=== PATIENT | male | born 1945 | race Caucasian/White ===

== ENCOUNTER 2020-07-24 12:44 | Inpatient (IN) | payer MEDICARE, BC ==
[2020-07-24] MEDS ORDERED: MORPHINE SULFATE 4 MG/ML SYRINGE IVP STA (14:23)
[2020-07-24] MEDS ORDERED: NALOXONE 0.4 MG/ML 1 ML VIAL IV PRN (14:36)
--- NOTE | 2020-07-24 14:36 | ED ---
SOB HPI - General Chief Complaint: Shortness of Breath Stated Complaint: SOB,Covid + Source: patient, EMS Mode of arrival: EMS - History of Present Illness Initial Comments: Patient is a 75-year-old male with past history of sarcoid who presents emergency Department as a transfer from [facility]. It was reported from the ER physician that the patient has been seen 3 times in the emergency room for similar complaints. He does wear 3 L of oxygen at night. He states he has been wearing it continuously for the past 5 days because of his increased work of breathing. He did have a Covid swab performed at his other ER visits which came back positive. He states they've been having progressive worsening shortness of breath. Today he arrived to the ER was found to be 80%. Decadron was given as well as albuterol inhaler. The patient did have a CT of his chest which was negative for PE. The remainder of the HPI is limited because the patient is a poor historian - Related Data Home Medications Medication Instructions Recorded Confirmed Albuterol Sulfate [Ventolin HFA] 2 puff INHALATION RT-Q6H PRN 07/24/20 07/24/20 Allopurinol [Zyloprim] 100 mg PO DAILY 07/24/20 07/24/20 Atorvastatin [Lipitor] 10 mg PO HS 07/24/20 07/24/20 Clopidogrel Bisulfate [Plavix] 75 mg PO DAILY 07/24/20 07/24/20 Docusate Sodium [Dok] 100 mg PO BID PRN 07/24/20 07/24/20 Isosorbide Mononitrate ER [Imdur] 30 mg PO DAILY 07/24/20 07/24/20 Levofloxacin [Levaquin] 750 mg PO DAILY 07/24/20 07/24/20 Losartan Potassium [Cozaar] 25 mg PO DAILY 07/24/20 07/24/20 Magnesium Oxide [Mag-Ox] 400 mg PO DAILY 07/24/20 07/24/20 Methadone [Dolophine] 10 mg PO Q12H 07/24/20 07/24/20 Nitroglycerin Sl Tabs [Nitrostat] 0.4 mg SUBLINGUAL Q5M PRN 07/24/20 07/24/20 Omeprazole [PriLOSEC] 20 mg PO DAILY 07/24/20 07/24/20 Sertraline [Zoloft] 50 mg PO DAILY 07/24/20 07/24/20 Tamsulosin [Flomax] 0.8 mg PO HS 07/24/20 07/24/20 cilostazoL [Pletal] 100 mg PO BID 07/24/20 07/24/20 Allergies Allergy/AdvReac Type Severity Reaction Status Date / Time fluoxetine [From Prozac] Allergy Unknown Verified 07/24/20 13:14 Review of Systems ROS Statement: Those systems with pertinent positive or pertinent negative responses have been documented in the HPI. ROS Other: All systems not noted in ROS Statement are negative. Past Medical History Past Medical History: Dementia History of Any Multi-Drug Resistant Organisms: None Reported General Exam Limitations: altered mental status General appearance: alert, in no apparent distress Head exam: Present: atraumatic, normocephalic, normal inspection Eye exam: Present: normal appearance, PERRL, EOMI. Absent: scleral icterus, conjunctival injection, periorbital swelling ENT exam: Present: normal exam, mucous membranes moist Respiratory exam: Present: normal lung sounds bilaterally. Absent: respiratory distress, wheezes, rales, rhonchi, stridor Cardiovascular Exam: Present: regular rate, normal rhythm, normal heart sounds. Absent: systolic murmur, diastolic murmur, rubs, gallop, clicks GI/Abdominal exam: Present: soft, normal bowel sounds. Absent: distended, tenderness, guarding, rebound, rigid Neurological exam: Present: alert, other (oriented x 2 - baseline) Course Vital Signs 07/24/20 07/24/20 07/24/20 12:56 14:51 15:43 Temperature 98.4 F Pulse Rate 58 L 87 90 Respiratory 14 18 16 Rate Blood Pressure 121/71 165/85 154/70 O2 Sat by Pulse 95 93 L 94 L Oximetry 07/24/20 07/24/20 07/24/20 17:28 19:16 21:38 Temperature Pulse Rate 94 84 93 Respiratory 12 18 12 Rate Blood Pressure 144/108 134/82 125/39 O2 Sat by Pulse 98 93 L 94 L Oximetry Medical Decision Making - Medical Decision Making Upon arrival patient is placed in room 18. Packet is obtained and reviewed. Vital stable at this time. Patient will be admitted to Dr. Milian who accepted the patient - Lab Data Result diagrams: 07/25/20 06:40 07/26/20 06:12 - EKG Data EKG Comments: EKG demonstrates a normal sinus rhythm with PVCs and compensatory pause. Rate of 88. IL interval 200. QRS 100. QTC of 462. No acute ST segment elevations or depressions Disposition Clinical Impression: Hypoxia, COVID-19 Disposition: ADMITTED IP TO THIS HOSP Condition: Serious Is patient prescribed a controlled substance at d/c from ED?: No Decision to Admit Reason: Admit from EC Decision Date: 07/24/20 Decision Time: 14:36
[2020-07-24] MEDS ORDERED: ENOXAPARIN 40 MG/0.4 ML SYRINGE SQ STA (14:45)
[2020-07-24] MEDS ORDERED: DOCUSATE 100 MG CAP PO PRN (16:25)
[2020-07-24] MEDS ORDERED: NITROGLYCERIN SL TABS 0.4 MG TAB SUBLINGUAL PRN (16:25)
--- NOTE | 2020-07-24 17:11 | XR ---
EXAMINATION TYPE: XR chest 1V portable DATE OF EXAM: 07/24/2020 COMPARISON: 07/24/2022 day HISTORY: Short of breath TECHNIQUE: FINDINGS: There is coarse interstitial density in the lungs. There are sternal wires. There are chest leads. Costophrenic angles are slightly blunted. IMPRESSION: Pulmonary interstitial fibrotic changes. No obvious heart failure. Right side pleural sca rring. No change compared to exam this morning at 8:00 AM.
[2020-07-24] MEDS: dexAMETHasone 2 MG TAB PO SCH (17:27)
[2020-07-24] MEDS: METHADONE 10 MG TAB PO SCH (17:27)
--- NOTE | 2020-07-24 17:56 | P.CNPUL ---
History of Present Illness Consult date: 07/24/20 Requesting physician: Huong Milian Reason for consult: dyspnea, hypoxemia Chief complaint: Dyspnea, progressive, hypoxemia History of present illness: 75-year-old white male patient with history of Alzheimer's dementia, BPH, depression, GERD, hypertension, CAD with previous bypass grafting and stenting, PVD, chronic back pain gout, and past history of sarcoidosis, who was transferred from [facility] where he went for evaluation worsening shortness of breath. Patient normally wears 3 L of oxygen at home at bedtime, and in last 5 days he's been wearing it continuously related to increased work of breathing. Apparently he had 3 ER visits last week for similar complaints. During those visits he was found to be positive for COVID 19. He had positive COVID 19 contacts. His daughter had COVID 19 infection about a month ago. In emergency department today his pulse ox was 80%. He was complaining of worsening shortness of breath and confusion, he was brought in by his son for evaluation. He is on Levaquin for urinary tract infection and pneumonia. He was started on Decadron and albuterol inhaler. He had a CTA chest which was negative for pulmonary embolism. He is afebrile, hemodynamically stable, his pulse ox is 93-95% on 2 L of oxygen, he is awaiting a bed on the medical surgical floor, he was continued on oral Decadron, empiric antibiotics in the form of Levaquin were added. And we were asked to see the patient in consultation to acute on chronic hypoxia related to COVID 19 infection Review of Systems All systems: negative Constitutional: Denies chills, Denies fever Eyes: denies blurred vision, denies pain Ears, nose, mouth and throat: Denies headache, Denies sore throat Cardiovascular: Denies chest pain, Denies shortness of breath Respiratory: Reports dyspnea, Reports home oxygen, Denies cough Gastrointestinal: Denies abdominal pain, Denies diarrhea, Denies nausea, Denies vomiting Musculoskeletal: Denies myalgias Integumentary: Denies pruritus, Denies rash Neurological: Denies numbness, Denies weakness Psychiatric: Denies anxiety, Denies depression Endocrine: Denies fatigue, Denies weight change Past Medical History Past Medical History: Dementia History of Any Multi-Drug Resistant Organisms: None Reported Medications and Allergies Home Medications Medication Instructions Recorded Confirmed Type Albuterol Sulfate [Ventolin HFA] 2 puff INHALATION RT-Q6H PRN 07/24/20 07/24/20 History Allopurinol [Zyloprim] 100 mg PO DAILY 07/24/20 07/24/20 History Atorvastatin [Lipitor] 10 mg PO HS 07/24/20 07/24/20 History Clopidogrel Bisulfate [Plavix] 75 mg PO DAILY 07/24/20 07/24/20 History Docusate Sodium [Dok] 100 mg PO BID PRN 07/24/20 07/24/20 History Isosorbide Mononitrate ER [Imdur] 30 mg PO DAILY 07/24/20 07/24/20 History Levofloxacin [Levaquin] 750 mg PO DAILY 07/24/20 07/24/20 History Losartan Potassium [Cozaar] 25 mg PO DAILY 07/24/20 07/24/20 History Magnesium Oxide [Mag-Ox] 400 mg PO DAILY 07/24/20 07/24/20 History Methadone [Dolophine] 10 mg PO Q12H 07/24/20 07/24/20 History Nitroglycerin Sl Tabs [Nitrostat] 0.4 mg SUBLINGUAL Q5M PRN 07/24/20 07/24/20 History Omeprazole [PriLOSEC] 20 mg PO DAILY 07/24/20 07/24/20 History Sertraline [Zoloft] 50 mg PO DAILY 07/24/20 07/24/20 History Tamsulosin [Flomax] 0.8 mg PO HS 07/24/20 07/24/20 History cilostazoL [Pletal] 100 mg PO BID 07/24/20 07/24/20 History Allergies Allergy/AdvReac Type Severity Reaction Status Date / Time fluoxetine [From Prozac] Allergy Unknown Verified 07/24/20 13:14 Physical Exam Vitals: Vital Signs Temp Pulse Resp BP Pulse Ox 07/24/20 15:43 90 16 154/70 94 L 07/24/20 14:51 87 18 165/85 93 L 07/24/20 12:56 98.4 F 58 L 14 121/71 95 Intake and Output 07/24/20 07/24/20 07/24/20 06:59 14:59 22:59 Other: Weight 111.13 kg GENERAL EXAM: Alert, pleasant, 75-year-old male, 2 L of oxygen and pulse ox 94%, seen in the emergency department, comfortable in no apparent distress. HEAD: Normocephalic/atraumatic. EYES: Normal reaction of pupils, equal size. Conjunctiva pink, sclera white. NOSE: Clear with pink turbinates. THROAT: No erythema or exudates. NECK: No masses, no JVD, no thyroid enlargement, no adenopathy. CHEST: No chest wall deformity. Symmetrical expansion. LUNGS: Equal air entry with basilar crackles, wheeze, rhonchi or dullness. CVS: Regular rate and rhythm, normal S1 and S2, no gallops, no murmurs, no rubs ABDOMEN: Soft, nontender. No hepatosplenomegaly, normal bowel sounds, no guarding or rigidity. EXTREMITIES: No clubbing, no edema, no cyanosis, 2+ pulses and upper and lower extremities. MUSCULOSKELETAL: Muscle strength and tone normal. SPINE: No scoliosis or deformity SKIN: No rashes CENTRAL NERVOUS SYSTEM: Alert and oriented -3. No focal deficits, tone is normal in all 4 extremities. PSYCHIATRIC: Alert and oriented -3. Appropriate affect. Intact judgment and insight. Results - Diagnostic Findings Chest x-ray: report reviewed, image reviewed Assessment and Plan Plan: Assessment: #1. Acute COVID 19 infection #2. Acute on chronic hypoxic respiratory failure related to the above #3. History of sarcoidosis #4. Chronic hypoxic respiratory failure, normally wears 3 L of oxygen at bedtime only #5. History of hypertension #6. GERD/reflux #7. Gout #8. Depression #9. BPH #10. Chronic pain syndrome #11. Recent urinary tract infection #12. History of coronary artery disease with previous bypass grafting and stenting Plan: Continue oral Decadron, and sent some labs including CBC, BMP, pro-calcitonin, LDH, CRP, d-dimer, ferritin, fibrinogen. We'll obtain a baseline chest x-ray. We'll hold off on Remdesivir, monitor oxygenation pattern, febrile pattern, we'll follow inflammatory markers, continue to follow. Prophylactic dose Lovenox, adjust based on the d-dimer level I performed a history & physical examination of the patient and discussed their management with my nurse practitioner, Destiny Holley. I reviewed the nurse practitioner's note and agree with the documented findings and plan of care. Lung sounds are positive for basilar crackles. The findings and the impression was discussed with the patient. I attest to the documentation by the nurse practitioner. Time with Patient: Greater than 30
[2020-07-24 17:58] LABS: D-Dimer 0.69 mg/L FEU (<0.60)
[2020-07-24 18:25] LABS: C Reactive Protein 145.2 mg/L (<10.0)
--- NOTE | 2020-07-24 21:44 | P.HPIM ---
History of Present Illness H&P Date: 07/24/20 Chief Complaint: Shortness of breath Patient is a 75-year-old male with a known history of sarcoidosis, Alzheimer's dementia, hypertension, GERD, BPH, coronary artery with history of stent placement, peripheral vascular disease and chronic back pain and Chronic back pain , use oxygen at night presents to [facility] initially with complaints of worsening shortness of breath. Patient usually uses oxygen at night but for the past 4 to 5 days he has been using continuously and is also having exertional dyspnea and shortness of breath. Patient was recently tested positive for COVID-19 virus. Patient will take Levaquin for urine tract infection and pneumonia. Patient had CT angiogram of the chest done at [facility] showed no evidence of pulmonary embolism. Patient was transferred to [facility] due to hypoxic respiratory failure and pulse ox was 80% and he presented to ER. Currently on oxygen via nasal cannula. Laboratory test showed D-dimer 0.69, troponin 0 0.020, CRP 145 and LDH 556 patient is currently afebrile while in the hospital. Review of Systems Constitutional: Subjective fevers and generalized weakness. no weight loss. Abdomen: Patient denied nausea vomiting and diarrhea and abdominal pain. Cardiovascular: Patient denies any chest pain or short of breath no palpitations. Respiratory: patient Patient does have cough and no sputum production. Exertional dyspnea andshortness of breath Neurologic: Patient denied any numbness or tingling headache. Musculoskeletal: Patient denies any complaints of joint swelling or deformity. Skin: Negative Psychiatric: Negative Endocrine: No heat or cold intolerance. No recent weight gain. Genitourinary: No dysuria or hematuria. All other 14 point ROS negative except the above Past Medical History Past Medical History: Dementia History of Any Multi-Drug Resistant Organisms: None Reported Medications and Allergies Home Medications Medication Instructions Recorded Confirmed Type Albuterol Sulfate [Ventolin HFA] 2 puff INHALATION RT-Q6H PRN 07/24/20 07/24/20 History Allopurinol [Zyloprim] 100 mg PO DAILY 07/24/20 07/24/20 History Atorvastatin [Lipitor] 10 mg PO HS 07/24/20 07/24/20 History Clopidogrel Bisulfate [Plavix] 75 mg PO DAILY 07/24/20 07/24/20 History Docusate Sodium [Dok] 100 mg PO BID PRN 07/24/20 07/24/20 History Isosorbide Mononitrate ER [Imdur] 30 mg PO DAILY 07/24/20 07/24/20 History Levofloxacin [Levaquin] 750 mg PO DAILY 07/24/20 07/24/20 History Losartan Potassium [Cozaar] 25 mg PO DAILY 07/24/20 07/24/20 History Magnesium Oxide [Mag-Ox] 400 mg PO DAILY 07/24/20 07/24/20 History Methadone [Dolophine] 10 mg PO Q12H 07/24/20 07/24/20 History Nitroglycerin Sl Tabs [Nitrostat] 0.4 mg SUBLINGUAL Q5M PRN 07/24/20 07/24/20 History Omeprazole [PriLOSEC] 20 mg PO DAILY 07/24/20 07/24/20 History Sertraline [Zoloft] 50 mg PO DAILY 07/24/20 07/24/20 History Tamsulosin [Flomax] 0.8 mg PO HS 07/24/20 07/24/20 History cilostazoL [Pletal] 100 mg PO BID 07/24/20 07/24/20 History Allergies Allergy/AdvReac Type Severity Reaction Status Date / Time fluoxetine [From Prozac] Allergy Unknown Verified 07/24/20 13:14 Physical Exam Vitals: Vital Signs Temp Pulse Resp BP Pulse Ox 07/24/20 15:43 90 16 154/70 94 L 07/24/20 14:51 87 18 165/85 93 L 07/24/20 12:56 98.4 F 58 L 14 121/71 95 Intake and Output 07/24/20 07/24/20 07/24/20 06:59 14:59 22:59 Other: Weight 111.13 kg Thrombosis Risk Factor Assmnt - DVT/VTE Prophylaxis DVT/VTE Prophylaxis: Pharmacologic Prophylaxis ordered Assessment and Plan Assessment: Acute hypoxic respiratory failure secondary to COVID-19 infection COVID-19 viral infection Chronic hypoxic respiratory failure on oxygen at 3 L via nasal cannula History of sarcoidosis currently not on any steroids. Coronary artery disease history of stent placement Recent urinary tract infection currently on Levaquin which is being continued Hypertension GERD BPH Gout Chronic back pain DVT prophylaxis with Lovenox Plan: Patient will be continued on oxygen therapy, Decadron and Lovenox currently. CTA negative for pulmonary embolism. Monitor CBC and BMP and i inflammatory a markers tomorrow. Pulmonary and ID was consulted. Continue to follow closely and isolation with droplet and contact precautions. Time with Patient: Greater than 30
[2020-07-25] MEDS: TAMSULOSIN 0.4 MG CAP.ER.24H PO SCH ×2 (00:24→21:23)
[2020-07-25] MEDS: ATORVASTATIN 10 MG TAB PO SCH ×2 (00:24→21:24)
[2020-07-25 01:16] LABS: Ferritin 81.9 ng/mL (22.0-322.0)
[2020-07-25] MEDS: METHADONE 10 MG TAB PO SCH ×2 (05:41→15:02)
[2020-07-25 07:10] LABS: Basophils % (A) 0 %; Eosinophils % (A) 0 %; HCT 35.4 % (39.0-53.0); Hypochromasia Slight; Lymphocytes # (A) 0.5 k/uL (1.0-4.8); Lymphocytes % (A) 14 %; MCH 25.2 pg (25.0-35.0); MCHC 31.1 g/dL (31.0-37.0); Mean Platelet Volume 7.9; Monocytes # (A) 0.2 k/uL (0-1.0); Monocytes % (A) 6 %; Neutrophils # (A) 2.5 k/uL (1.3-7.7); Neutrophils % (A) 78 %; Platelet Count 183 k/uL (150-450); RBC 4.37 m/uL (4.30-5.90); RDW 15.6 % (11.5-15.5); WBC 3.2 k/uL (3.8-10.6)
[2020-07-25] MEDS ORDERED: LEVOFLOXACIN 500MG-D5W PMX 500 MG in DEXTROSE/WATER 1 100ML.BAG IVPB SCH (09:00)
[2020-07-25] MEDS: ENOXAPARIN 40 MG/0.4 ML SYRINGE SQ SCH (10:29)
[2020-07-25] MEDS: PANTOPRAZOLE 40 MG TABLET PO SCH (10:29)
[2020-07-25] MEDS: LOSARTAN 25 MG TAB PO SCH (10:29)
[2020-07-25] MEDS: allopurinoL 100 MG TAB PO SCH (10:29)
[2020-07-25] MEDS: ISOSORBIDE MONONITRATE ER 30 MG TAB.ER.24H PO SCH (10:29)
[2020-07-25] MEDS: SERTRALINE 50 MG TAB PO SCH (10:30)
[2020-07-25] MEDS: CLOPIDOGREL 75 MG TAB PO SCH (10:30)
[2020-07-25 12:11] LABS: African American GFR (CKD) 61.9 (60.0-200.0); Albumin 3.6 g/dL (3.80-4.90); Albumin/Globulin Ratio 1.24 (1.60-3.17); Anion Gap 9.3 mmol/L (4.00-12.00); C Reactive Protein 11.9 mg/dL (0.0-0.8); Calcium 8.8 mg/dL (8.7-10.3); Carbon Dioxide 26.7 mmol/L (21.6-31.8); Globulin 2.9 g/dL (1.6-3.3); Non-African American GFR(CKD) 53.4 (60.0-200.0); Total Bilirubin 0.4 mg/dL (0.2-1.2); Total Protein 6.5 g/dL (6.2-8.2)
[2020-07-25] MEDS: ACETAMINOPHEN TAB 325 MG TAB PO PRN (15:01)
[2020-07-25] MEDS: dexAMETHasone 2 MG TAB PO SCH (15:02)
--- NOTE | 2020-07-25 16:13 | P.PN ---
Subjective Progress Note Date: 07/25/20 Principal diagnosis: Acute COVID 19 infection 75-year-old white male patient with history of Alzheimer's dementia, BPH, depression, GERD, hypertension, CAD with previous bypass grafting and stenting, PVD, chronic back pain gout, and past history of sarcoidosis, who was transferre d from [facility] where he went for evaluation worsening shortness of breath. Patient normally wears 3 L of oxygen at home at bedtime, and in last 5 days he's been wearing it continuously related to increased work of breathing. Apparently he had 3 ER visits last week for similar complaints. During those visits he was found to be positive for COVID 19. He had positive COVID 19 contacts. His daughter had COVID 19 infection about a month ago. In emergency department today his pulse ox was 80%. He was complaining of worsening shortness of breath and confusion, he was brought in by his son for evaluation. He is on Levaquin for urinary tract infection and pneumonia. He was started on Decadron and albuterol inhaler. He had a CTA chest which was negative for pulmonary embolism. He is afebrile, hemodynamically stable, his pulse ox is 93-95% on 2 L of oxygen, he is awaiting a bed on the medical surgical floor, he was continued on oral Decadron, empiric antibiotics in the form of Levaquin were added. And we were asked to see the patient in consultation to acute on chronic hypoxia related to COVID 19 infection On 07/25/2020 patient seen in follow-up on the general medical surgical floor. he is calm and comfortable, he is currently on 5 L the pulse ox of 93%, breat med comfortably, his been afebrile, hemodynamically has been stable, no complaints of chest pain, his much less confused and she is quite alert and oriented 3, he is providing history of present illness. He continues on oral Decadron, prophylactic dose of Lovenox, he is on Levaquin for recent history of urinary tract infection. His labs have been reviewed, showing limits at 3.2, hemoglobin of 11, fibrinogen is 514, electrolytes and renal profile were unremarkable, CRP has improved, and LDH has significantly improved as well. Pro-calcitonin level was 0.09. Objective - Vital Signs Vital signs: Vital Signs Temp 98.1 F 07/25/20 14:17 Pulse 58 L 07/25/20 14:17 Resp 17 07/25/20 14:17 BP 164/82 07/25/20 14:17 Pulse Ox 90 L 07/25/20 14:17 Intake & Output 07/24/20 07/25/20 07/25/20 18:59 06:59 18:59 Intake Total 200 350 Balance 200 350 Weight 111.13 kg 111.13 kg Intake: Intake, IV Titration 100 Amount Levofloxacin 500Mg-D5w 100 Pmx 500 mg In Dextrose/ Water 1 100ml.bag @ 100 mls/hr IVPB DAILY [facility] Rx# :[id number] Oral 200 250 Other: Voiding Method Urinal # Voids 3 - Exam GENERAL EXAM: Alert, very pleasant, 75-year-old male, 5 L of oxygen with pulse ox of 90-93% comfortable in no apparent distress. HEAD: Normocephalic/atraumatic. EYES: Normal reaction of pupils, equal size. Conjunctiva pink, sclera white. NOSE: Clear with pink turbinates. THROAT: No erythema or exudates. NECK: No masses, no JVD, no thyroid enlargement, no adenopathy. CHEST: No chest wall deformity. Symmetrical expansion. LUNGS: Equal air entry with no crackles, wheeze, rhonchi or dullness. CVS: Regular rate and rhythm, normal S1 and S2, no gallops, no murmurs, no rubs ABDOMEN: Soft, nontender. No hepatosplenomegaly, normal bowel sounds, no guarding or rigidity. EXTREMITIES: No clubbing, no edema, no cyanosis, 2+ pulses and upper and lower extremities. MUSCULOSKELETAL: Muscle strength and tone normal. SPINE: No scoliosis or deformity SKIN: No rashes CENTRAL NERVOUS SYSTEM: Alert and oriented -3. No focal deficits, tone is normal in all 4 extremities. PSYCHIATRIC: Alert and oriented -3. Appropriate affect. Intact judgment and insight. - Labs CBC & Chem 7: 07/25/20 06:40 07/25/20 06:40 Labs: Abnormal Lab Results - Last 24 Hours (Table) 07/24/20 07/24/20 07/25/20 Range/Units 17:26 17:26 06:40 WBC 3.2 L (3.8-10.6) k/uL Hgb 11.0 L (13.0-17.5) gm/dL Hct 35.4 L (39.0-53.0) % RDW 15.6 H (11.5-15.5) % Lymphocytes # 0.5 L (1.0-4.8) k/uL Fibrinogen 565 H (200-500) mg/dL D-Dimer 0.69 H (<0.60) mg/L FEU Est GFR (CKD-EPI)NonAf (60.0-200.0) Glucose (70-110) mg/dL C-Reactive Protein 145.2 H (<10.0) mg/L Albumin (3.80-4.90) g/dL Albumin/Globulin Ratio (1.60-3.17) g/dL 07/25/20 07/25/20 Range/Units 06:40 06:40 WBC (3.8-10.6) k/uL Hgb (13.0-17.5) gm/dL Hct (39.0-53.0) % RDW (11.5-15.5) % Lymphocytes # (1.0-4.8) k/uL Fibrinogen 514 H (200-500) mg/dL D-Dimer (<0.60) mg/L FEU Est GFR (CKD-EPI)NonAf 53.4 L (60.0-200.0) Glucose 156 H (70-110) mg/dL C-Reactive Protein 11.9 H (<10.0) mg/L Albumin 3.60 L (3.80-4.90) g/dL Albumin/Globulin Ratio 1.24 L (1.60-3.17) g/dL Assessment and Plan Plan: Assessment: #1. Acute COVID 19 infection #2. Acute on chronic hypoxic respiratory failure related to the above #3. History of sarcoidosis #4. Chronic hypoxic respiratory failure, normally wears 3 L of oxygen at bedtime only #5. History of hypertension #6. GERD/reflux #7. Gout #8. Depression #9. BPH #10. Chronic pain syndrome #11. Recent urinary tract infection #12. History of coronary artery disease with previous bypass grafting and stenting Plan: Continue current medical treatment, we'll stop the Levaquin, continue oral Decadron, and no significant worsening in his pulmonary symptoms, but is requiring higher amount of oxygen. Continue monitoring his febrile pattern, vital signs are stable, inflammatory markers are actually trending down. We will hold off on Remdesivir, continue to monitor I performed a history & physical examination of the patient and discussed their management with my nurse practitioner, Destiny Holley. I reviewed the nurse practitioner's note and agree with the documented findings and plan of care. Lung sounds are positive for basilar crackles. The findings and the impression was discussed with the patient. I attest to the documentation by the nurse practitioner. Time with Patient: Less than 30
[2020-07-26] MEDS: ACETAMINOPHEN TAB 325 MG TAB PO PRN (00:36)
[2020-07-26] MEDS: METHADONE 10 MG TAB PO SCH ×2 (05:16→15:25)
[2020-07-26] MEDS: PANTOPRAZOLE 40 MG TABLET PO SCH (08:07)
[2020-07-26] MEDS: dexAMETHasone 2 MG TAB PO SCH (08:08)
[2020-07-26] MEDS: ISOSORBIDE MONONITRATE ER 30 MG TAB.ER.24H PO SCH (08:08)
[2020-07-26] MEDS: ENOXAPARIN 40 MG/0.4 ML SYRINGE SQ SCH (08:08)
[2020-07-26] MEDS: LOSARTAN 25 MG TAB PO SCH (08:08)
[2020-07-26] MEDS: SERTRALINE 50 MG TAB PO SCH (08:08)
[2020-07-26] MEDS: allopurinoL 100 MG TAB PO SCH (08:08)
[2020-07-26] MEDS: CLOPIDOGREL 75 MG TAB PO SCH (08:08)
[2020-07-26] MEDS ORDERED: LEVOFLOXACIN 250MG-D5W PMX 250 MG in DEXTROSE/WATER 1 50ML.BAG IVPB SCH (09:00)
--- NOTE | 2020-07-26 10:14 | P.CONS ---
History of Present Illness - Reason for Consult Consult date: 07/25/20 Covid 19 infection Requesting physician: Huong Milian - Chief Complaint Shortness of breath x weeks - History of Present Illness Patient is a 75-year-old female who initially presented answered facility for evaluation of increasing shortness of breath patient's symptom has been going on for more than a week, complaining of shortness of breath on minimal exertion and even at rest patient also have a cough which is moderate in intensity but not pickling operator any sputum. Denies having any pleuritic chest pain no nausea no vomiting did have some diarrhea patient did have covid 19 testing. Outside facility which came back positive subsequently the patient has been transferred to [facility] for further management, patient around to this facility was afebrile however the patient was hypoxic requiring high flow nasal cannula oxygen patient did have a leukopenia as well as lymphopenia elevated d- dimer, patient also have elevated CRP, pro-calcitonin was normal, chest x-ray with pulmonary institution fibrotic changes patient has been admitted to the hospital infection disease was consulted for further management Review of Systems Positive point has been mentioned in the HPI rest of the systems are negative Past Medical History Past Medical History: Dementia History of Any Multi-Drug Resistant Organisms: None Reported Past Anesthesia/Blood Transfusion Reactions: No Reported Reaction Smoking Status: Never smoker Medications and Allergies Home Medications Medication Instructions Recorded Confirmed Type Albuterol Sulfate [Ventolin HFA] 2 puff INHALATION RT-Q6H PRN 07/24/20 07/24/20 History Allopurinol [Zyloprim] 100 mg PO DAILY 07/24/20 07/24/20 History Atorvastatin [Lipitor] 10 mg PO HS 07/24/20 07/24/20 History Clopidogrel Bisulfate [Plavix] 75 mg PO DAILY 07/24/20 07/24/20 History Docusate Sodium [Dok] 100 mg PO BID PRN 07/24/20 07/24/20 History Isosorbide Mononitrate ER [Imdur] 30 mg PO DAILY 07/24/20 07/24/20 History Levofloxacin [Levaquin] 750 mg PO DAILY 07/24/20 07/24/20 History Losartan Potassium [Cozaar] 25 mg PO DAILY 07/24/20 07/24/20 History Magnesium Oxide [Mag-Ox] 400 mg PO DAILY 07/24/20 07/24/20 History Methadone [Dolophine] 10 mg PO Q12H 07/24/20 07/24/20 History Nitroglycerin Sl Tabs [Nitrostat] 0.4 mg SUBLINGUAL Q5M PRN 07/24/20 07/24/20 History Omeprazole [PriLOSEC] 20 mg PO DAILY 07/24/20 07/24/20 History Sertraline [Zoloft] 50 mg PO DAILY 07/24/20 07/24/20 History Tamsulosin [Flomax] 0.8 mg PO HS 07/24/20 07/24/20 History cilostazoL [Pletal] 100 mg PO BID 07/24/20 07/24/20 History Allergies Allergy/AdvReac Type Severity Reaction Status Date / Time fluoxetine [From Prozac] Allergy Unknown Verified 07/24/20 13:14 Physical Exam Vitals: Vital Signs Temp Pulse Resp BP Pulse Ox 07/25/20 21:35 98.2 F 60 16 157/91 93 L 07/25/20 18:04 97.6 F 58 L 17 158/80 92 L 07/25/20 17:00 93 L 07/25/20 16:00 58 L 17 07/25/20 14:17 98.1 F 58 L 17 164/82 90 L 07/25/20 09:49 97.8 F 56 L 17 174/81 93 L 07/25/20 07:40 56 L 17 07/25/20 05:52 98.3 F 61 18 111/72 95 07/25/20 02:15 97.7 F 81 18 159/72 94 L 07/25/20 00:00 99 18 07/24/20 22:39 99 18 07/24/20 22:31 97.6 F 99 18 161/69 90 L Intake and Output 07/25/20 07/25/20 07/25/20 06:59 14:59 22:59 Intake Total 200 350 Balance 200 350 Intake: Intake, IV Titration 100 Amount Levofloxacin 500Mg-D5w 100 Pmx 500 mg In Dextrose/ Water 1 100ml.bag @ 100 mls/hr IVPB DAILY [facility] [place] Rx# :[id number] Oral 200 250 Other: Voiding Method Urinal Urinal # Voids 3 0 GENERAL DESCRIPTION: An elderly female lying in bed, no distress. No tachypnea or accessory muscle of respiration use. HEENT: Shows Pallor , no scleral icterus. Oral mucous membrane is dry. No phar yngeal erythema or thrush NECK: Trachea central, no thyromegaly. LUNGS: Unlabored breathing. Decreased intensity of breath sounds. No wheeze or crackle. HEART: S1, S2, regular rate and rhythm. No loud murmur ABDOMEN: Soft, no tenderness , guarding or rigidity, no organomegaly EXTREMITIES: No edema of feet. SKIN: No rash, no masses palpable. NEUROLOGICAL: The patient is awake, alert, oriented x2, mood and affect normal. Results CBC & Chem 7: 07/25/20 06:40 07/25/20 06:40 Labs: Abnormal Lab Results - Last 24 Hours (Table) 07/25/20 07/25/20 07/25/20 Range/Units 06:40 06:40 06:40 WBC 3.2 L (3.8-10.6) k/uL Hgb 11.0 L (13.0-17.5) gm/dL Hct 35.4 L (39.0-53.0) % RDW 15.6 H (11.5-15.5) % Lymphocytes # 0.5 L (1.0-4.8) k/uL Fibrinogen 514 H (200-500) mg/dL Est GFR (CKD-EPI)NonAf 53.4 L (60.0-200.0) Glucose 156 H (70-110) mg/dL C-Reactive Protein 11.9 H (0.0-0.8) mg/dL Albumin 3.60 L (3.80-4.90) g/dL Albumin/Globulin Ratio 1.24 L (1.60-3.17) g/dL Assessment and Plan Assessment: 1-patient presenting to the hospital with increasing shortness of breath and this patient has been hypoxic however no fever has been recorded chest x-ray did show some fibrotic changes but no groundglass opacities, patient had did have improvement in inflammatory markers with initial treatment started yesterday with Decadron and Lovenox, clinically with no evidence of any secondary bacterial infection with a normal pro-calcitonin (1) COVID-19 Current Visit: Yes Status: Acute Code(s): U07.1 - COVID-19 SNOMED Code(s): 123692400 Plan: 1- patient to continue with the current treatment regime of dexamethasone, Lovenox, zinc sulfate in view of clinical improvement 2-no need for systemic antibiotic therapy 3-droplet isolation and respiratory support We will follow on clinical condition and cultures to further adjust medication if needed Thank you for this consultation will follow this patient with you Time with Patient: Greater than 30
[2020-07-26 11:56] LABS: Ferritin 87.3 ng/mL (22.0-322.0)
[2020-07-26 12:18] LABS: African American GFR (CKD) 75.7 (60.0-200.0); Albumin 3.8 g/dL (3.80-4.90); Albumin/Globulin Ratio 1.27 (1.60-3.17); Anion Gap 9.3 mmol/L (4.00-12.00); BUN/Creat Ratio 29.09 Ratio (12.00-20.00); C Reactive Protein 8.2 mg/dL (0.0-0.8); Calcium 8.7 mg/dL (8.7-10.3); Carbon Dioxide 27.7 mmol/L (21.6-31.8); Non-African American GFR(CKD) 65.3 (60.0-200.0); Total Bilirubin 0.4 mg/dL (0.3-1.2); Total Protein 6.8 g/dL (6.2-8.2)
[2020-07-26] MEDS ORDERED: REMDESIVIR 200 MG in SODIUM CHLORIDE 0.9% 250 ML IVPB ONE (13:00)
--- NOTE | 2020-07-26 13:11 | XR ---
EXAMINATION TYPE: XR chest 1V portable DATE OF EXAM: 07/26/2020 COMPARISON: 07/24/2020. HISTORY: Follow-up shortness of breath. TECHNIQUE: Single frontal view of the chest is obtained. FINDINGS: There is increased bilateral airspace opacities, diffuse on the right and moderate in the mid to lower lung on the left. There is probable small right pleural effusion. No pneumothorax seen. Stable cardiomediastinal silhouette and overlying postsurgical changes. The osseous structures are intact. IMPRESSION: Progression of bilateral airspace disease as described.
[2020-07-26] MEDS ORDERED: MORPHINE SULFATE 2 MG/ML SYRINGE IVP STA (16:53)
--- NOTE | 2020-07-26 17:37 | P.PN ---
Subjective Progress Note Date: 07/26/20 Principal diagnosis: Acute CoVID 19 infection 75-year-old white male patient with history of Alzheimer's dementia, BPH, depression, GERD, hypertension, CAD with previous bypass grafting and stenting, PVD, chronic back pain gout, and past history of sarcoidosis, who was transferr ed from [facility] where he went for evaluation worsening shortness of breath. Patient normally wears 3 L of oxygen at home at bedtime, and in last 5 days he's been wearing it continuously related to increased work of breathing. Apparently he had 3 ER visits last week for similar complaints. During those visits he was found to be positive for COVID 19. He had positive COVID 19 contacts. His daughter had COVID 19 infection about a month ago. In emergency department today his pulse ox was 80%. He was complaining of worsening shortness of breath and confusion, he was brought in by his son for evaluation. He is on Levaquin for urinary tract infection and pneumonia. He was started on Decadron and albuterol inhaler. He had a CTA chest which was negative for pulmonary embolism. He is afebrile, hemodynamically stable, his pulse ox is 93-95% on 2 L of oxygen, he is awaiting a bed on the medical surgical floor, he was continued on oral Decadron, empiric antibiotics in the form of Levaquin were added. And we were asked to see the patient in consultation to acute on chronic hypoxia related to COVID 19 infection On 07/25/2020 patient seen in follow-up on the general medical surgical floor. he is calm and comfortable, he is currently on 5 L the pulse ox of 93%, marty thing comfortably, his been afebrile, hemodynamically has been stable, no complaints of chest pain, his much less confused and she is quite alert and oriented 3, he is providing history of present illness. He continues on oral Decadron, prophylactic dose of Lovenox, he is on Levaquin for recent history of urinary tract infection. His labs have been reviewed, showing limits at 3.2, hemoglobin of 11, fibrinogen is 514, electrolytes and renal profile were unremarkable, CRP has improved, and LDH has significantly improved as well. Pro-calcitonin level was 0.09. The patient is seen today in 07/26/2020 in follow-up on the regular medical floor. He is currently sitting up in a chair at the bedside. He is still quite short of breath. He is now requiring 15 L high flow nasal cannula to maintain O2 saturations in the low 90s. He is afebrile. Fibrinogen 528. Sodium 142. Distant 4.0. Creatinine 1.1. LDH 308. C-reactive protein 8.2. He's been initiated on Remdesivir. Objective - Vital Signs Vital signs: Vital Signs Temp 97.6 F 07/26/20 14:00 Pulse 62 07/26/20 14:00 Resp 22 07/26/20 14:00 BP 162/78 07/26/20 14:00 Pulse Ox 92 L 07/26/20 14:00 Intake & Output 07/25/20 07/26/20 07/26/20 18:59 06:59 18:59 Intake Total 350 100 Balance 350 100 Intake: Intake, IV Titration 100 Amount Levofloxacin 500Mg-D5w 100 Pmx 500 mg In Dextrose/ Water 1 100ml.bag @ 100 mls/hr IVPB DAILY [facility] Rx# :[id number] Oral 250 100 Other: Voiding Method Urinal Urinal Urinal # Voids 3 0 2 - Exam GENERAL EXAM: Alert, very pleasant, 75-year-old male, 15 L of oxygen with pulse ox of923% comfortable in no apparent distress. HEAD: Normocephalic/atraumatic. EYES: Normal reaction of pupils, equal size. Conjunctiva pink, sclera white. NOSE: Clear with pink turbinates. THROAT: No erythema or exudates. NECK: No masses, no JVD, no thyroid enlargement, no adenopathy. CHEST: No chest wall deformity. Symmetrical expansion. LUNGS: Equal air entry with bilateral scattered rhonchi CVS: Regular rate and rhythm, normal S1 and S2, no gallops, no murmurs, no rubs ABDOMEN: Soft, nontender. No hepatosplenomegaly, normal bowel sounds, no guarding or rigidity. EXTREMITIES: No clubbing, no edema, no cyanosis, 2+ pulses and upper and lower extremities. MUSCULOSKELETAL: Muscle strength and tone normal. SPINE: No scoliosis or deformity SKIN: No rashes CENTRAL NERVOUS SYSTEM: Alert and oriented -3. No focal deficits, tone is normal in all 4 extremities. PSYCHIATRIC: Alert and oriented -3. Appropriate affect. Intact judgment and insight. - Labs CBC & Chem 7: 07/25/20 06:40 07/26/20 06:12 Labs: Abnormal Lab Results - Last 24 Hours (Table) 07/26/20 07/26/20 Range/Units 06:12 06:12 Fibrinogen 520 H (200-500) mg/dL BUN 32.0 H (9.0-27.0) mg/dL BUN/Creatinine Ratio 29.09 H (12.00-20.00) Ratio Glucose 119 H (70-110) mg/dL Lactate Dehydrogenase 308 H (120-246) U/L C-Reactive Protein 8.2 H (0.0-0.8) mg/dL Albumin/Globulin Ratio 1.27 L (1.60-3.17) g/dL Assessment and Plan Assessment: #1. Acute COVID 19 infection #2. Acute on chronic hypoxic respiratory failure related to the above #3. History of sarcoidosis #4. Chronic hypoxic respiratory failure, normally wears 3 L of oxygen at bedtime only #5. History of hypertension #6. GERD/reflux #7. Gout #8. Depression #9. BPH #10. Chronic pain syndrome #11. Recent urinary tract infection #12. History of coronary artery disease with previous bypass grafting and stenting Plan: The patient was seen and evaluated by Dr. Read He is more short of breath and hypoxic today Currently on 15 L high flow nasal cannula He has been initiated on Remdesivir. He will be transferred to the intensive care unit for closer monitoring Continue the current treatment plan Order 1 unit of convalescent plasma We will continue to follow and make further recommendations based on his clinical status Prognosis remains guarded I, the cosigning physician, performed a history & physical examination of the patient. Lungs sounds bilateral scattered rhonchi. Maintaining good O2 saturations in the 90s on 15 L high flow nasal cannula. I discussed the ass essment and plan of care with my nurse practitioner, Bella Meyers. I attest to the above note as dictated by her.
[2020-07-26 20:07] LABS: ABG Base Excess 1.1 mmol/L; ABG HCO3 25 mmol/L (21-25); ABG Oxygen Saturation 96.1 % (94-97); ABG PCO2 35 mmHg (35-45); ABG PH 7.46 (7.35-7.45); ABG PO2 75 mmHg (83-108); ABG TCO2 26 mmol/L (19-24); Allen Test Performed? Yes
--- NOTE | 2020-07-26 22:36 | PN ---
PROGRESS NOTE DATE OF SERVICE: 07/26/2020 REASON FOR FOLLOWUP: Acute COVID-19 pneumonia. INTERVAL HISTORY: Patient is currently afebrile. The patient is hypoxic and requiring non-rebreather oxygen. The patient denies having any chest pain. He did have a cough, not bringing up any sputum. No vomiting or diarrhea. EXAM: Blood pressure 120/92 with a pulse of 115, temperature 99. He is 94% on non- rebreather. General description is an elderly male up in the bed in no distress. Respiratory system: Unlabored breathing, decreased breath sounds at bases, no wheeze. Heart S1, S2. Regular rate and rhythm. Abdomen soft, no tenderness. LABS: Hemoglobin 11.1, white count 3.2, BUN of 32, creatinine 1.1. IMPRESSION/PLAN: Acute COVID-19 pneumonia in this patient seemed to have shown slight worsening of his clinical condition. Patient will be transferred down to the ICU for respiratory support. Patient is covered with dexamethasone and Lovenox and Remdesivir, to continue and monitor clinical course closely. MMMARTÍNL / IJN: [id number] /
[2020-07-26] MEDS: ATORVASTATIN 10 MG TAB PO SCH (22:48)
[2020-07-26] MEDS: TAMSULOSIN 0.4 MG CAP.ER.24H PO SCH (22:48)
[2020-07-27] MEDS ORDERED: propofoL 100 ML IV ONE (00:44)
[2020-07-27] MEDS ORDERED: PROPOFOL 10 MG/ML 20 ML VIAL IV ONE (01:10)
[2020-07-27] MEDS ORDERED: SUCCINYLCHOLINE CHLORIDE VIAL 200 MG/10 ML VIAL IV ONE (01:10)
--- NOTE | 2020-07-27 01:58 | XR ---
EXAM: XR Chest, 1 View CLINICAL HISTORY: ITS.REASON XR Reason: Tube placement TECHNIQUE: Frontal view of the chest. COMPARISON: 07/26/2020, earlier study. 08/03/2020 FINDINGS: Lungs: Patchy consolidation of the right lung base possibly in the basis of pneumonia or pulmonary edema. Patchy consolidation at the left lung base possibly in the basilar atelectasis versus pneumonia. Pleural space: There is a small to moderate right pleural effusion with a probable loculated component at the right apex. No pneumothorax. Heart: Cardiomegaly. Mediastinum: Unremarkable. Bones/joints: Unremarkable. Tubes, lines and devices: NG tube is noted in place with its tip below the diaphragm. Endotracheal tube is noted in place approximately 3 cm above the charly, in good position. Other findings: Bullous changes at the right apex, similar to that noted on the previous study. IMPRESSION: 1. Endotracheal tube is noted in place in good position. 2. Bibasilar airspace disease possibly on the basis of by basilar pneumonias. 3. Right pleural effusion with a probable loculated component at the right apex. 4. NG tube is noted in place in good position. 5. Cardiomegaly.
[2020-07-27 01:59] LABS: ABG Base Excess -1.2 mmol/L; ABG HCO3 25 mmol/L (21-25); ABG Oxygen Saturation 88.5 % (94-97); ABG PCO2 46 mmHg (35-45); ABG PH 7.34 (7.35-7.45); ABG TCO2 26 mmol/L (19-24)
[2020-07-27 02:02] LABS: ABG PO2 59 mmHg (83-108)
[2020-07-27] MEDS: METHADONE 10 MG TAB PO SCH (04:32)
[2020-07-27 05:34] LABS: ABG HCO3 26 mmol/L (21-25); ABG Oxygen Saturation 92.4 % (94-97); ABG PCO2 54 mmHg (35-45); ABG PH 7.28 (7.35-7.45); ABG PO2 72 mmHg (83-108); ABG TCO2 27 mmol/L (19-24)
[2020-07-27 07:54] LABS: Basophils % (A) 0 %; Eosinophils % (A) 0 %; HCT 38.3 % (39.0-53.0); HGB 11.6 gm/dL (13.0-17.5); Hypochromasia Marked; Lymphocytes # (A) 0.5 k/uL (1.0-4.8); Lymphocytes % (A) 4 %; MCH 24.7 pg (25.0-35.0); MCHC 30.3 g/dL (31.0-37.0); MCV 81.4 fL (80.0-100.0); Mean Platelet Volume 6.9; Monocytes # (A) 0.5 k/uL (0-1.0); Monocytes % (A) 4 %; Neutrophils # (A) 10.2 k/uL (1.3-7.7); Neutrophils % (A) 91 %; Platelet Count 245 k/uL (150-450); RBC 4.71 m/uL (4.30-5.90); RDW 15.7 % (11.5-15.5); WBC 11.2 k/uL (3.8-10.6)
[2020-07-27] MEDS: PANTOPRAZOLE 40 MG TABLET PO SCH (07:54)
[2020-07-27] MEDS: ISOSORBIDE MONONITRATE ER 30 MG TAB.ER.24H PO SCH (07:54)
[2020-07-27] MEDS: CHLORHEXIDINE GLUCONATE 15 ML CUP MUCOUS MEM SCH ×2 (07:54→21:05)
[2020-07-27] MEDS: ENOXAPARIN 40 MG/0.4 ML SYRINGE SQ SCH (07:54)
[2020-07-27] MEDS: allopurinoL 100 MG TAB PO SCH (07:54)
[2020-07-27] MEDS: dexAMETHasone 2 MG TAB PO SCH (07:54)
[2020-07-27] MEDS: LOSARTAN 25 MG TAB PO SCH (07:54)
[2020-07-27] MEDS: CLOPIDOGREL 75 MG TAB PO SCH (07:54)
[2020-07-27 08:10] LABS: Calcium 7.9 mg/dL (8.4-10.2); Potassium 4.1 mmol/L (3.5-5.1); Total Bilirubin 0.4 mg/dL (0.2-1.3); Total Protein 6.4 g/dL (6.3-8.2)
[2020-07-27 08:28] LABS: C Reactive Protein 185.4 mg/L (<10.0)
[2020-07-27] MEDS: SERTRALINE 50 MG TAB PO SCH (08:53)
[2020-07-27] MEDS ORDERED: CEFEPIME 2 GM in SODIUM CHLORIDE 0.9% 100 ML IVPB ONE (09:15)
[2020-07-27] MEDS ORDERED: SODIUM CHLORIDE 0.9% 1,000 ML IV ONE (09:16)
[2020-07-27] MEDS: ASCORBIC ACID 500 MG TAB PO SCH (09:48)
[2020-07-27] MEDS: SODIUM CHLORIDE 0.9% 1,000 ML IV SCH ×2 (09:49→21:04)
[2020-07-27] MEDS: ZINC SULFATE 220 MG CAP PO SCH (09:49)
[2020-07-27 09:50] VITALS: BMI 38.3
[2020-07-27] MEDS: FAMOTIDINE 20 MG TAB PO SCH (09:51)
--- NOTE | 2020-07-27 09:55 | XR ---
EXAMINATION TYPE: XR chest 1V portable DATE OF EXAM: 07/27/2020 COMPARISON: 07/27/2020 HISTORY: Central line placement TECHNIQUE: Single frontal view of the chest is obtained. FINDINGS: Diffuse pleural-parenchymal changes are stable. ET and NG tube stable. Postoperative villatoro es. Left-sided central line seen with the tip extending near the region of the SVC right subclavian junct ion. IMPRESSION: 1. Diffuse pleural-parenchymal changes with no sizable pneumothorax. Findings are stable. 2. Central line appears to extend across the midline likely at the junction of the SVC and right subc lavian vein
--- NOTE | 2020-07-27 11:23 | P.PN ---
Subjective Progress Note Date: 07/25/20 Principal diagnosis: Acute hypoxic respiratory failure secondary to COVID-19 infection Patient is a 75-year-old male with a known history of sarcoidosis, Alzheimer's dementia, hypertension, GERD, BPH, coronary artery with history of stent placement, peripheral vascular disease and chronic back pain and Chronic back pain , use oxygen at night presents to [facility] initially with complaints of worsening shortness of breath. Patient usually uses oxygen at night but for the past 4 to 5 days he has been using continuously and is also having exertional dyspnea and shortness of breath. Patient was recently tested positive for COVID-19 virus. Patient will take Levaquin for urine tract infection and pneumonia. Patient had CT angiogram of the chest done at [facility] showed no evidence of pulmonary embolism. Patient was transferred to [facility] due to hypoxic respiratory failure and pulse ox was 80% and he presented to ER. Currently on oxygen via nasal cannula. Laboratory test showed D-dimer 0.69, troponin 0 0.020, CRP 145 and LDH 556 patient is currently afebrile while in the hospital. 07/25/2020 Patient is currently lying in bed comfortably. Still requiring oxygen at 5 L by nasal cannula and saturating just above 90%. Hemodynamically stable. Patient is being continued on dexamethasone, Lovenox and is also on antibiotics for recent urinary tract infection. Laboratory data showed WBC 3.2, hemoglobin 11 and renal function is stable. Pulmonary is on board. Current medications reviewed. Objective - Vital Signs Vital signs: Vital Signs Temp 98.1 F 07/25/20 14:17 Pulse 58 L 07/25/20 14:17 Resp 17 07/25/20 14:17 BP 164/82 07/25/20 14:17 Pulse Ox 90 L 07/25/20 14:17 Intake & Output 07/24/20 07/25/20 07/25/20 18:59 06:59 18:59 Intake Total 200 350 Balance 200 350 Weight 111.13 kg 111.13 kg Intake: Intake, IV Titration 100 Amount Levofloxacin 500Mg-D5w 100 Pmx 500 mg In Dextrose/ Water 1 100ml.bag @ 100 mls/hr IVPB DAILY [facility] Rx# :[id number] Oral 200 250 Other: Voiding Method Urinal # Voids 3 - Exam PHYSICAL EXAMINATION: Patient is lying in the bed comfortably, no acute distress, awake alert and oriented.. HEENT: Normocephalic. Neck is supple. Pupils reactive. Nostrils clear. Oral cavity is moist. Ears reveal no drainage. Neck reveals no JVD, carotid bruits, or thyromegaly. CHEST EXAMINATION: Trachea is central. Symmetrical expansion. Lung thurman clear to auscultation and percussion. CARDIAC: Normal S1, S2 with no gallops. No murmurs ABDOMEN: Soft. Bowel sounds normal. No organomegaly. No abdominal bruits. Extremities: reveal no edema. No clubbing or cyanosis Neurologically awake, alert, oriented x3 with well-coordinated movements. No focal deficits noted Skin: No rash or skin lesions. Psychiatric: Coperative. Nonsuicidal Musculoskeletal: No joint swelling or deformity. Normal range of motion. - Labs CBC & Chem 7: 07/27/20 07:30 07/27/20 07:30 Labs: Abnormal Lab Results - Last 24 Hours (Table) 07/24/20 07/24/20 07/25/20 Range/Units 17:26 17:26 06:40 WBC 3.2 L (3.8-10.6) k/uL Hgb 11.0 L (13.0-17.5) gm/dL Hct 35.4 L (39.0-53.0) % RDW 15.6 H (11.5-15.5) % Lymphocytes # 0.5 L (1.0-4.8) k/uL Fibrinogen 565 H (200-500) mg/dL D-Dimer 0.69 H (<0.60) mg/L FEU Est GFR (CKD-EPI)NonAf (60.0-200.0) Glucose (70-110) mg/dL C-Reactive Protein 145.2 H (<10.0) mg/L Albumin (3.80-4.90) g/dL Albumin/Globulin Ratio (1.60-3.17) g/dL 07/25/20 07/25/20 Range/Units 06:40 06:40 WBC (3.8-10.6) k/uL Hgb (13.0-17.5) gm/dL Hct (39.0-53.0) % RDW (11.5-15.5) % Lymphocytes # (1.0-4.8) k/uL Fibrinogen 514 H (200-500) mg/dL D-Dimer (<0.60) mg/L FEU Est GFR (CKD-EPI)NonAf 53.4 L (60.0-200.0) Glucose 156 H (70-110) mg/dL C-Reactive Protein 11.9 H (<10.0) mg/L Albumin 3.60 L (3.80-4.90) g/dL Albumin/Globulin Ratio 1.24 L (1.60-3.17) g/dL Assessment and Plan Assessment: Acute hypoxic respiratory failure secondary to COVID-19 infection COVID-19 viral infection Chronic hypoxic respiratory failure on oxygen at 3 L via nasal cannula History of sarcoidosis currently not on any steroids. Coronary artery disease history of stent placement Recent urinary tract infection currently on Levaquin which is being continued Hypertension GERD BPH Gout Chronic back pain DVT prophylaxis with Lovenox Plan: Patient will be continued on oxygen therapy, Decadron and Lovenox currently. CTA negative for pulmonary embolism. Monitor CBC and BMP and i inflammatory a markers tomorrow. Pulmonary and ID was consulted. Continue to follow closely and isolation with droplet and contact precautions. Time with Patient: Greater than 30
--- NOTE | 2020-07-27 11:26 | P.PN ---
Subjective Progress Note Date: 07/26/20 Principal diagnosis: Acute hypoxic respiratory failure secondary to COVID-19 infection Patient is a 75-year-old male with a known history of sarcoidosis, Alzheimer's dementia, hypertension, GERD, BPH, coronary artery with history of stent placement, peripheral vascular disease and chronic back pain and Chronic back pain , use oxygen at night [facility] with complaints of worsening shortness of breath. Patient usually uses oxygen at night but for the past 4 to 5 days he has been using continuously and is also having exertional dyspnea and shortness of breath. Patient was recently tested positive for COVID-19 virus. Patient will take Levaquin for urine tract infection and pneumonia. Patient had CT angiogram of the chest done at [facility] showed no evidence of pulmonary embolism. Patient was transferred to [facility] due to hypoxic respiratory failure and pulse ox was 80% and he presented to ER. Currently on oxygen via nasal cannula. Laboratory test showed D-dimer 0.69, troponin 0 0.020, CRP 145 and LDH 556 patient is currently afebrile while in the hospital. 07/25/2020 Patient is currently lying in bed comfortably. Still requiring oxygen at 5 L by nasal cannula and saturating just above 90%. Hemodynamically stable. Patient is being continued on dexamethasone, Lovenox and is also on antibiotics for recent urinary tract infection. Laboratory data showed WBC 3.2, hemoglobin 11 and renal function is stable. Pulmonary is on board. 07/26/2020 Patient is currently lying in the bed and his oxygen requirements have been increased today. Patient is on 15 L high flow oxygen. Currently afebrile. No complaints of chest pain. Patient is being continued on Remdesivir, dexamethasone and Lovenox. Laboratory data showed Sodium 142, potassium 4.0, BUN 32 and creatinine 1.1 LDH increased to 308 and CRP 8.2. Patient is being transferred to MICU due to worsening respiratory status. Current medications reviewed. Objective - Vital Signs Vital signs: Vital Signs Temp 99.0 F 07/26/20 20:30 Pulse 116 H 07/26/20 21:15 Resp 24 07/26/20 21:15 BP 120/92 07/26/20 21:15 Pulse Ox 94 L 07/26/20 21:15 Intake & Output 07/26/20 07/26/20 07/27/20 06:59 18:59 06:59 Intake Total 100 224 Output Total 400 450 Balance 100 -400 -226 Intake: IV 20 NS 20 Oral 100 Blood Product 204 Ffp Pher Conval Covid19 204 Acda 1 Unit [id number] Output: Urine 400 450 Uretheral (Santana) 400 Other: Voiding Method Urinal Indwelling Catheter Indwelling Catheter # Voids 0 2 - Exam PHYSICAL EXAMINATION: Patient is lying in the bed comfortably, no acute distress, awake alert and oriented.. HEENT: Normocephalic. Neck is supple. Pupils reactive. Nostrils clear. Oral cavity is moist. Ears reveal no drainage. Neck reveals no JVD, carotid bruits, or thyromegaly. CHEST EXAMINATION: Trachea is central. Symmetrical expansion. Lung thurman clear to auscultation and percussion. CARDIAC: Normal S1, S2 with no gallops. No murmurs ABDOMEN: Soft. Bowel sounds normal. No organomegaly. No abdominal bruits. Extremities: reveal no edema. No clubbing or cyanosis Neurologically awake, alert, oriented x3 with well-coordinated movements. No focal deficits noted Skin: No rash or skin lesions. Psychiatric: Coperative. Nonsuicidal Musculoskeletal: No joint swelling or deformity. Normal range of motion. - Labs CBC & Chem 7: 07/27/20 07:30 07/27/20 07:30 Labs: Abnormal Lab Results - Last 24 Hours (Table) 07/26/20 07/26/20 07/26/20 Range/Units 06:12 06:12 17:46 Fibrinogen 520 H (200-500) mg/dL D-Dimer 1.87 H (<0.60) mg/L FEU ABG pH (7.35-7.45) ABG pO2 (83-108) mmHg ABG Total CO2 (19-24) mmol/L BUN 32.0 H (9.0-27.0) mg/dL BUN/Creatinine Ratio 29.09 H (12.00-20.00) Ratio Glucose 119 H (70-110) mg/dL Lactate Dehydrogenase 308 H (120-246) U/L C-Reactive Protein 8.2 H (0.0-0.8) mg/dL Albumin/Globulin Ratio 1.27 L (1.60-3.17) g/dL 07/26/20 Range/Units 20:00 Fibrinogen (200-500) mg/dL D-Dimer (<0.60) mg/L FEU ABG pH 7.46 H (7.35-7.45) ABG pO2 75 L (83-108) mmHg ABG Total CO2 26 H (19-24) mmol/L BUN (9.0-27.0) mg/dL BUN/Creatinine Ratio (12.00-20.00) Ratio Glucose (70-110) mg/dL Lactate Dehydrogenase (120-246) U/L C-Reactive Protein (0.0-0.8) mg/dL Albumin/Globulin Ratio (1.60-3.17) g/dL Assessment and Plan Assessment: Acute hypoxic respiratory failure secondary to COVID-19 infection COVID-19 viral infection Chronic hypoxic respiratory failure on oxygen at 3 L via nasal cannula History of sarcoidosis currently not on any steroids. Coronary artery disease history of stent placement Recent urinary tract infection currently on Levaquin which is being continued. Changed to cefepime. Hypertension GERD BPH Gout Chronic back pain DVT prophylaxis with Lovenox Plan: Patient will be continued on oxygen therapy, Decadron and Lovenox currently. CTA negative for pulmonary embolism. Monitor CBC and BMP and i inflammatory a markers tomorrow. Pulmonary and ID is following. Continue to follow closely and isolation with droplet and contact precautions. Time with Patient: Greater than 30
[2020-07-27] MEDS: REMDESIVIR 100 MG in SODIUM CHLORIDE 0.9% 250 ML IVPB SCH (14:00)
--- NOTE | 2020-07-27 15:28 | P.PN ---
Subjective Progress Note Date: 07/27/20 75-year-old white male patient with history of Alzheimer's dementia, BPH, depression, GERD, hypertension, CAD with previous bypass grafting and stenting, PVD, chronic back pain gout, and past history of sarcoidosis, who was transferred from [facility] where he went for evaluation worsening shortness of breath. Patient normally wears 3 L of oxygen at home at bedtime, and in last 5 days he's been wearing it continuously related to increased work of breathing. Apparently he had 3 ER visits last week for similar complaints. During those visits he was found to be positive for COVID 19. He had positive COVID 19 contacts. His daughter had COVID 19 infection about a month ago. In emergency department today his pulse ox was 80%. He was complaining of worsening shortness of breath and confusion, he was brought in by his son for evaluation. He is on Levaquin for urinary tract infection and pneumonia. He was started on Decadron and albuterol inhaler. He had a CTA chest which was negative for pulmonary embolism. He is afebrile, hemodynamically stable, his pulse ox is 93-95% on 2 L of oxygen, he is awaiting a bed on the medical surgical floor, he was continued on oral Decadron, empiric antibiotics in the form of Levaquin were added. And we were asked to see the patient in consultation to acute on chronic hypoxia related to COVID 19 infection On 07/25/2020 patient seen in follow-up on the general medical surgical floor. he is calm and comfortable, he is currently on 5 L the pulse ox of 93%, breathing comfortably, his been afebrile, hemodynamically has been stable, no complaints of chest pain, his much less confused and she is quite alert and oriented 3, he is providing history of present illness. He continues on oral Decadron, prophylactic dose of Lovenox, he is on Levaquin for recent history of urinary tract infection. His labs have been reviewed, showing limits at 3.2, hemoglobin of 11, fibrinogen is 514, electrolytes and renal profile were unremarkable, CRP has improved, and LDH has significantly improved as well. Pro-calcitonin level was 0.09. The patient is seen today in 07/26/2020 in follow-up on the regular medical floor. He is currently sitting up in a chair at the bedside. He is still quite short of breath. He is now requiring 15 L high flow nasal cannula to maintain O2 saturations in the low 90s. He is afebrile. Fibrinogen 528. Sodium 142. Distant 4.0. Creatinine 1.1. LDH 308. C-reactive protein 8.2. He's been initiated on Remdesivir. 07/27/2020, the patient is in the intensive care unit intubated on a mechanical ventilator. Note that overnight, the patient became confused and altered and he became progressively more short of breath and hypoxic. He had to be transferred to the intensive care unit. In the middle of the evening after midnight, the patient became more hypoxic and short of breath and ultimately had to be intubated after failing high flow oxygen and BiPAP therapy. At this point in time, the patient is intubated on a mechanical ventilator. He is sedated with propofol running at 40 mg per KG per minute. He is on a mechanical ventilation on assist control mode rate of 22 with a tidal volume of 450 and FiO2 of 100% with a PEEP of 8. The blood gases from today showed a pH of 7.28 with a pCO2 of 54 and pO2 72. The patient is currently receiving Decadron, he is also on Remdesivir and he has received a unit of convalescent plasma. His blood work shows an LDH of 842 and CRP of 185 and both of these values are higher compared to yesterday. The patient is also developed an acute kidney injury. Creatinine is up to 1.75. His white cell count 11.2 with hemoglobin 11.6. He is on empiric antibiotic coverage with IV cefepime. He is on Lovenox 40 mg subcu for DVT prophylaxis as the patient's d-dimer was at 1.87. He will be started on enteral feeding for nutritional support. A triple lumen catheter will be established. He does have an arterial line this point in time for hemodynamic monitoring. Objective - Vital Signs Vital signs: Vital Signs Temp 99.0 F 07/27/20 12:00 Pulse 91 07/27/20 15:00 Resp 22 07/27/20 15:00 BP 111/65 07/27/20 15:00 Pulse Ox 97 07/27/20 15:00 Intake & Output 07/26/20 07/27/20 07/27/20 18:59 06:59 18:59 Intake Total 196.047 7541 Output Total 400 1090 67 Balance -400 -512.562 9989 Weight 111.13 kg Intake: IV 680 1510 0.9 Normal Saline at KVO 680 60 Sodium Chloride 0.9% 1, 450 000 ml @ 75 mls/hr IV . [id number] [facility] Rx#:[id number] Sodium Chloride 0.9% 1, 1000 000 ml @ 999 mls/hr IV . Q1H1M ONE Rx#:[id number] Intake, IV Titration 62.511 100 Amount propofoL 1,000 mg In 62.511 100 Empty Bag 1 bag @ Titrate IV .Q0M [facility] Rx#: [id number] Tube Feeding 0 Blood Product 204 Ffp Pher Conval Covid19 204 Acda 1 Unit [id number] Other 0 Output: Urine 400 1090 67 Uretheral (Santana) 400 Other: Voiding Method Indwelling Catheter Indwelling Catheter # Voids 2 ABP, PAP, CO, CI - Last Documented Arterial Blood Pressure 68/38 - Exam GENERAL EXAM: Alert, very pleasant, 75-year-old male, currently sedated, comfortable intubated on a mechanical ventilator. Orogastric and orotracheal tube are both in place. HEAD: Normocephalic/atraumatic. EYES: Normal reaction of pupils, equal size. Conjunctiva pink, sclera white. NOSE: Clear with pink turbinates. THROAT: No erythema or exudates. Orotracheal and orogastric tube are both in place. NECK: No masses, no JVD, no thyroid enlargement, no adenopathy. The patient is a left IJ triple lumen catheter in place. CHEST: No chest wall deformity. Symmetrical expansion. LUNGS: Equal air entry with bilateral scattered rhonchi CVS: Regular rate and rhythm, normal S1 and S2, no gallops, no murmurs, no rubs ABDOMEN: Soft, nontender. No hepatosplenomegaly, normal bowel sounds, no guarding or rigidity. EXTREMITIES: No clubbing, no edema, no cyanosis, 2+ pulses and upper and lower extremities. MUSCULOSKELETAL: Muscle strength and tone normal. SPINE: No scoliosis or deformity SKIN: No rashes CENTRAL NERVOUS SYSTEM: Sedated, calm and comfortable and suggested a mechanical ventilator. - Labs CBC & Chem 7: 07/27/20 07:30 07/27/20 07:30 Labs: Abnormal Lab Results - Last 24 Hours (Table) 07/26/20 07/26/20 07/27/20 Range/Units 17:46 20:00 01:53 WBC (3.8-10.6) k/uL Hgb (13.0-17.5) gm/dL Hct (39.0-53.0) % MCH (25.0-35.0) pg MCHC (31.0-37.0) g/dL RDW (11.5-15.5) % Neutrophils # (1.3-7.7) k/uL Lymphocytes # (1.0-4.8) k/uL Fibrinogen (200-500) mg/dL D-Dimer 1.87 H (<0.60) mg/L FEU ABG pH 7.46 H 7.34 L (7.35-7.45) ABG pCO2 46 H (35-45) mmHg ABG pO2 75 L 59 L* (83-108) mmHg ABG HCO3 (21-25) mmol/L ABG Total CO2 26 H 26 H (19-24) mmol/L ABG O2 Saturation 88.5 L (94-97) % Chloride (98-107) mmol/L BUN (9-20) mg/dL Creatinine (0.66-1.25) mg/dL Glucose (74-99) mg/dL Calcium (8.4-10.2) mg/dL Lactate Dehydrogenase (313-618) U/L C-Reactive Protein (<10.0) mg/L Albumin (3.5-5.0) g/dL 07/27/20 07/27/20 07/27/20 Range/Units 05:32 07:30 07:30 WBC (3.8-10.6) k/uL Hgb (13.0-17.5) gm/dL Hct (39.0-53.0) % MCH (25.0-35.0) pg MCHC (31.0-37.0) g/dL RDW (11.5-15.5) % Neutrophils # (1.3-7.7) k/uL Lymphocytes # (1.0-4.8) k/uL Fibrinogen 510 H (200-500) mg/dL D-Dimer (<0.60) mg/L FEU ABG pH 7.28 L (7.35-7.45) ABG pCO2 54 H (35-45) mmHg ABG pO2 72 L (83-108) mmHg ABG HCO3 26 H (21-25) mmol/L ABG Total CO2 27 H (19-24) mmol/L ABG O2 Saturation 92.4 L (94-97) % Chloride 108 H (98-107) mmol/L BUN 34 H (9-20) mg/dL Creatinine 1.75 H (0.66-1.25) mg/dL Glucose 155 H (74-99) mg/dL Calcium 7.9 L (8.4-10.2) mg/dL Lactate Dehydrogenase 842 H (313-618) U/L C-Reactive Protein 185.4 H (<10.0) mg/L Albumin 3.0 L (3.5-5.0) g/dL 07/27/20 Range/Units 07:30 WBC 11.2 H (3.8-10.6) k/uL Hgb 11.6 L (13.0-17.5) gm/dL Hct 38.3 L (39.0-53.0) % MCH 24.7 L (25.0-35.0) pg MCHC 30.3 L (31.0-37.0) g/dL RDW 15.7 H (11.5-15.5) % Neutrophils # 10.2 H (1.3-7.7) k/uL Lymphocytes # 0.5 L (1.0-4.8) k/uL Fibrinogen (200-500) mg/dL D-Dimer (<0.60) mg/L FEU ABG pH (7.35-7.45) ABG pCO2 (35-45) mmHg ABG pO2 (83-108) mmHg ABG HCO3 (21-25) mmol/L ABG Total CO2 (19-24) mmol/L ABG O2 Saturation (94-97) % Chloride (98-107) mmol/L BUN (9-20) mg/dL Creatinine (0.66-1.25) mg/dL Glucose (74-99) mg/dL Calcium (8.4-10.2) mg/dL Lactate Dehydrogenase (313-618) U/L C-Reactive Protein (<10.0) mg/L Albumin (3.5-5.0) g/dL Microbiology - Last 24 Hours (Table) 07/27/20 01:15 Sputum Culture - Preliminary Sputum Assessment and Plan Plan: #1. Acute COVID 19 pneumonia with diffuse breath and pulmonary infiltrates. In flammatory markers continued to be elevated. The patient received Decadron,Remdesivir day #2 and the patient has received a unit of convalescent plasma.. At this point the patient is intubated on a mechanical ventilator. #2. Acute on chronic hypoxic respiratory failure related to the above, curr ently intubated and he is on a mechanical ventilator. The patient failed high flow oxygen and BiPAP therapy and ultimately had to be intubated overnight. The blood gas today showing a component of respiratory acidosis. Oxygenation is adequate. The patient is on PEEP of 8 and FiO2 100%. #3. History of sarcoidosis #4. Chronic hypoxic respiratory failure, normally wears 3 L of oxygen at [facility] only, on an outpatient basis #5. History of hypertension #6. GERD/reflux #7. Gout #8. Depression #9. BPH #10. Chronic pain syndrome #11. Recent urinary tract infection #12. History of coronary artery disease with previous bypass grafting and stenting #13 acute kidney injury in the creatinine is up to 1.75. Plan Continue ventilator support Increase the PEEP of 10 Gradually wean off FiO2 to maintain saturation above 90% Repeated blood gases around noontime Continue the combination of Decadron, Remdesivir, and the patient has received a unit a unit of convalescent plasma. Monitor inflammatory markers Cover this patient with empiric antibiotics IV cefepime. There is worsening consolidation of the right lower lobe. Check pro calcitonin level. Give the patient bolus of 1 L Triple-lumen catheter was established Monitor CVP Monitor renal function as the patient has developed an acute kidney injury on today's blood work Initiate enteral feeding for decision support Condition is critical we'll continue to follow make further recommendations based on his progress. This evaluation was done in more than 30 minutes. Time with Patient: Greater than 30
--- NOTE | 2020-07-27 16:52 | P.PCN ---
Date of Procedure: 07/27/20 Preoperative Diagnosis: Acute hypoxic respiratory failure, pneumonia Postoperative Diagnosis: Acute hypoxic respiratory failure, pneumonia Procedure(s) Performed: Insertion of a triple-lumen catheter Anesthesia: local Surgeon: Christiana Read Pathology: other Condition: critical Disposition: ICU Operative Findings: Indication: Hemodynamic monitoring/Intravenous access. A time-out was completed verifying correct patient, procedure, site, positioning, and implant(s) or special equipment if applicable. The patient was placed in a dependent position appropriate for central line placement based on the vein to be cannulated. The patients left neck was prepped and draped in sterile fashion. 1% Lidocaine was used to anesthetize the surrounding skin area. A triple lumen 9F Cordis catheter was introduced into the left internal jugular vein using Seldinger technique. The catheter was threaded smoothly over the guide wire and appropriate blood return was obtained. Each lumen of the catheter was evacuated of air and flushed with sterile saline. The catheter was then sutured in place to the skin and a sterile dressing applied. Perfusion to the extremity distal to the point of catheter insertion was checked and found to be adequate. The patient tolerated the procedure well and there were no complications.
[2020-07-27 16:58] LABS: Ferritin 109.7 ng/mL (22.0-322.0)
[2020-07-27] MEDS: CEFEPIME 2 GM in SODIUM CHLORIDE 0.9% 100 ML IVPB SCH (21:04)
[2020-07-27] MEDS: ATORVASTATIN 10 MG TAB PO SCH (21:05)
[2020-07-27] MEDS: TAMSULOSIN 0.4 MG CAP.ER.24H PO SCH (21:05)
[2020-07-27] MEDS: MELATONIN 5 MG TABLET PO SCH (21:05)
[2020-07-27] MEDS: DOCUSATE 100 MG CAP PO SCH (21:05)
--- NOTE | 2020-07-27 23:34 | P.PN ---
Subjective Progress Note Date: 07/27/20 Principal diagnosis: Acute hypoxic respiratory failure secondary to COVID-19 infection Patient is a 75-year-old male with a known history of sarcoidosis, Alzheimer's dementia, hypertension, GERD, BPH, coronary artery with history of stent placement, peripheral vascular disease and chronic back pain and Chronic back pain , use oxygen at night presents to [facility] initially with complaints of worsening shortness of breath. Patient usually uses oxygen at night but for the past 4 to 5 days he has been using continuously and is also having exertional dyspnea and shortness of breath. Patient was recently tested positive for COVID-19 virus. Patient will take Levaquin for urine tract infection and pneumonia. Patient had CT angiogram of the chest done at [facility] showed no evidence of pulmonary embolism. Patient was transferred to [facility] due to hypoxic respiratory failure and pulse ox was 80% and he presented to ER. Currently on oxygen via nasal cannula. Laboratory test showed D-dimer 0.69, troponin 0 0.020, CRP 145 and LDH 556 patient is currently afebrile while in the hospital. 07/25/2020 Patient is currently lying in bed comfortably. Still requiring oxygen at 5 L by nasal cannula and saturating just above 90%. Hemodynamically stable. Patient is being continued on dexamethasone, Lovenox and is also on antibiotics for recent urinary tract infection. Laboratory data showed WBC 3.2, hemoglobin 11 and renal function is stable. Pulmonary is on board. 07/26/2020 Patient is currently lying in the bed and his oxygen requirements have been increased today. Patient is on 15 L high flow oxygen. Currently afebrile. No complaints of chest pain. Patient is being continued on Remdesivir, dexamethasone and Lovenox. Laboratory data showed Sodium 142, potassium 4.0, BUN 32 and creatinine 1.1 LDH increased to 308 and CRP 8.2. Patient is being transferred to MICU due to worsening respiratory status. 07/27/2020 Patient was transferred to MICU yesterday and was intubated shirt maker today due to worsening respiratory status and hypoxemia. Chest x-ray showed diffuse pleural-parenchymal changes with no sizable pneumothorax. Findings are stable. Laboratory data showed WBC 11.2, hemoglobin 11.6, platelets 245 Potassium 4.1, BUN 34 and creatinine 1.75, alk phos 842 and LDH 185 bilirubin level is 0.4 Patient was started on enteral feeding. Patient has been afebrile. Currently saturating at 95% on FiO2 90%. Pulmonary is following. Current medications reviewed. Objective - Vital Signs Vital signs: Vital Signs Temp 99.0 F 07/27/20 12:00 Pulse 91 07/27/20 15:00 Resp 22 07/27/20 15:00 BP 111/65 07/27/20 15:00 Pulse Ox 97 07/27/20 15:00 Intake & Output 07/26/20 07/27/20 07/27/20 18:59 06:59 18:59 Intake Total 330.168 7778 Output Total 400 1090 67 Balance -400 -514.807 0687 Weight 111.13 kg Intake: IV 680 1510 0.9 Normal Saline at KVO 680 60 Sodium Chloride 0.9% 1, 450 000 ml @ 75 mls/hr IV . [id number] [facility] Rx#:[id number] Sodium Chloride 0.9% 1, 1000 000 ml @ 999 mls/hr IV . Q1H1M [facility] Rx#:[id number] Intake, IV Titration 62.511 200 Amount propofoL 1,000 mg In 62.511 200 Empty Bag 1 bag @ Titrate IV .Q0M [facility] Rx#: [id number] Tube Feeding 0 Blood Product 204 Ffp Pher Conval Covid19 204 Acda 1 Unit [id number] Other 0 Output: Urine 400 1090 67 Uretheral ([place]) 400 Other: Voiding Method Indwelling Catheter Indwelling Catheter # Voids 2 ABP, PAP, CO, CI - Last Documented Arterial Blood Pressure 68/38 - Exam PHYSICAL EXAMINATION: Patient is Sedated and intubated... HEENT: Normocephalic. Neck is supple. Pupils reactive. Nostrils clear. Oral cavity is moist. Ears reveal no drainage. Neck reveals no JVD, carotid bruits, or thyromegaly. CHEST EXAMINATION: Trachea is central. Symmetrical expansion. Lung thurman clear to auscultation and percussion. CARDIAC: Normal S1, S2 with no gallops. No murmurs ABDOMEN: Soft. Bowel sounds normal. No organomegaly. No abdominal bruits. Extremities: reveal no edema. No clubbing or cyanosis Neurologically Sedated and intubated.. No focal deficits noted Skin: No rash or skin lesions. Psychiatric: could not be assesed Musculoskeletal: No joint swelling or deformity. - Labs CBC & Chem 7: 07/27/20 07:30 07/27/20 07:30 Labs: Abnormal Lab Results - Last 24 Hours (Table) 07/26/20 07/26/20 07/27/20 Range/Units 17:46 20:00 01:53 WBC (3.8-10.6) k/uL Hgb (13.0-17.5) gm/dL Hct (39.0-53.0) % MCH (25.0-35.0) pg MCHC (31.0-37.0) g/dL RDW (11.5-15.5) % Neutrophils # (1.3-7.7) k/uL Lymphocytes # (1.0-4.8) k/uL Fibrinogen (200-500) mg/dL D-Dimer 1.87 H (<0.60) mg/L FEU ABG pH 7.46 H 7.34 L (7.35-7.45) ABG pCO2 46 H (35-45) mmHg ABG pO2 75 L 59 L* (83-108) mmHg ABG HCO3 (21-25) mmol/L ABG Total CO2 26 H 26 H (19-24) mmol/L ABG O2 Saturation 88.5 L (94-97) % Chloride (98-107) mmol/L BUN (9-20) mg/dL Creatinine (0.66-1.25) mg/dL Glucose (74-99) mg/dL Calcium (8.4-10.2) mg/dL Lactate Dehydrogenase (313-618) U/L C-Reactive Protein (<10.0) mg/L Albumin (3.5-5.0) g/dL 07/27/20 07/27/20 07/27/20 Range/Units 05:32 07:30 07:30 WBC (3.8-10.6) k/uL Hgb (13.0-17.5) gm/dL Hct (39.0-53.0) % MCH (25.0-35.0) pg MCHC (31.0-37.0) g/dL RDW (11.5-15.5) % Neutrophils # (1.3-7.7) k/uL Lymphocytes # (1.0-4.8) k/uL Fibrinogen 510 H (200-500) mg/dL D-Dimer (<0.60) mg/L FEU ABG pH 7.28 L (7.35-7.45) ABG pCO2 54 H (35-45) mmHg ABG pO2 72 L (83-108) mmHg ABG HCO3 26 H (21-25) mmol/L ABG Total CO2 27 H (19-24) mmol/L ABG O2 Saturation 92.4 L (94-97) % Chloride 108 H (98-107) mmol/L BUN 34 H (9-20) mg/dL Creatinine 1.75 H (0.66-1.25) mg/dL Glucose 155 H (74-99) mg/dL Calcium 7.9 L (8.4-10.2) mg/dL Lactate Dehydrogenase 842 H (313-618) U/L C-Reactive Protein 185.4 H (<10.0) mg/L Albumin 3.0 L (3.5-5.0) g/dL 07/27/20 Range/Units 07:30 WBC 11.2 H (3.8-10.6) k/uL Hgb 11.6 L (13.0-17.5) gm/dL Hct 38.3 L (39.0-53.0) % MCH 24.7 L (25.0-35.0) pg MCHC 30.3 L (31.0-37.0) g/dL RDW 15.7 H (11.5-15.5) % Neutrophils # 10.2 H (1.3-7.7) k/uL Lymphocytes # 0.5 L (1.0-4.8) k/uL Fibrinogen (200-500) mg/dL D-Dimer (<0.60) mg/L FEU ABG pH (7.35-7.45) ABG pCO2 (35-45) mmHg ABG pO2 (83-108) mmHg ABG HCO3 (21-25) mmol/L ABG Total CO2 (19-24) mmol/L ABG O2 Saturation (94-97) % Chloride (98-107) mmol/L BUN (9-20) mg/dL Creatinine (0.66-1.25) mg/dL Glucose (74-99) mg/dL Calcium (8.4-10.2) mg/dL Lactate Dehydrogenase (313-618) U/L C-Reactive Protein (<10.0) mg/L Albumin (3.5-5.0) g/dL Microbiology - Last 24 Hours (Table) 07/27/20 01:15 Sputum Culture - Preliminary Sputum Assessment and Plan Assessment: Acute hypoxic respiratory failure secondary to COVID-19 infection. Currently on mechanical ventilator. COVID-19 viral infection Chronic hypoxic respiratory failure on oxygen at 3 L via nasal cannula History of sarcoidosis currently not on any steroids. Coronary artery disease history of stent placement Recent urinary tract infection currently on Levaquin which is being continued. Changed to cefepime. Hypertension GERD BPH Gout Chronic back pain DVT prophylaxis with Lovenox Plan: Patient is on mechanical ventilator. Patient will be continued on oxygen therapy, Decadron and Lovenox currently. CTA negative for pulmonary embolism. Monitor CBC and BMP and i inflammatory a markers tomorrow. Pulmonary and ID is following. Continue to follow closely and isolation with droplet and contact precautions. Time with Patient: Greater than 30
--- NOTE | 2020-07-28 00:30 | PN ---
PROGRESS NOTE DATE OF SERVICE: 07/27/2020 REASON FOR FOLLOWUP: COVID-19 pneumonia. INTERVAL HISTORY: The patient did have worsening of his respiratory status. Patient has been transferred to ICU and ended up getting intubated. He did have low grade fever of 100.1 around 3:30 in the morning. Afebrile since then. The patient is currently on 90% FiO2. or any diarrhea reported by nursing staff. PHYSICAL EXAMINATION: Blood pressure 101/70 with a pulse of 80, temperature 98.7. He is 98% on 90% FiO2. General Description is an elderly male intubated on the vent. RESPIRATORY SYSTEM: Unlabored breathing, decreased breath sounds at the bases. No wheeze. HEART: S1, S2. Regular rate and rhythm. ABDOMEN: Soft, no tenderness. LABS: Hemoglobin 11.6, white count 11.2, BUN of 24, creatinine 1.75. Sputum culture pending. DIAGNOSTIC IMPRESSION AND PLAN: Patient in acute respiratory failure which is multifactorial. This patient did have acute COVID-19 pneumonia. Patient is currently covered with remdesivir, dexamethasone, Lovenox. Cefepime has been added. Sputum culture has been requested and closely followed and antibiotic adjusted further if needed. MMODL / IJN: [id number] /
[2020-07-28 03:21] LABS: HCT 32.9 % (39.0-53.0); HGB 10.3 gm/dL (13.0-17.5); Hypochromasia Marked; MCH 25.8 pg (25.0-35.0); MCHC 31.3 g/dL (31.0-37.0); MCV 82.2 fL (80.0-100.0); Mean Platelet Volume 7.9; Platelet Count 193 k/uL (150-450); RDW 15.9 % (11.5-15.5); WBC 8.7 k/uL (3.8-10.6)
[2020-07-28 03:34] LABS: Albumin 2.5 g/dL (3.5-5.0); Calcium 7.5 mg/dL (8.4-10.2); Potassium 3.9 mmol/L (3.5-5.1); Total Bilirubin 0.4 mg/dL (0.2-1.3); Total Protein 5.7 g/dL (6.3-8.2)
[2020-07-28 03:47] LABS: D-Dimer 12.35 mg/L FEU (<0.60)
[2020-07-28 03:52] LABS: C Reactive Protein 217.6 mg/L (<10.0)
[2020-07-28 04:58] LABS: ABG Base Excess -3.9 mmol/L; ABG HCO3 22 mmol/L (21-25); ABG Oxygen Saturation 97.8 % (94-97); ABG PCO2 42 mmHg (35-45); ABG PH 7.33 (7.35-7.45); ABG PO2 98 mmHg (83-108); ABG TCO2 23 mmol/L (19-24)
[2020-07-28 04:59] LABS: Allen Test Performed? no
[2020-07-28] MEDS: PANTOPRAZOLE 40 MG TABLET PO SCH (06:18)
--- NOTE | 2020-07-28 08:07 | XR ---
EXAMINATION TYPE: XR chest 1V portable DATE OF EXAM: 07/28/2020 COMPARISON: 07/27/2020 INDICATION: Tube placement TECHNIQUE: Single frontal view of the chest is obtained. FINDINGS: The heart size is borderline in size. The pulmonary vasculature is normal. Patchy infiltrates are present within the mid and lower lung thurman. Correlate for pneumonia and atyp ical pneumonia. Endotracheal tube tip is 2.7 cm above the charly. Nasogastric tube transverses the thorax the tip wit hin the abdomen. Left central venous catheter tip is in the superior vena cava region directed slight ly superiorly sternotomy wires are in the midline. IMPRESSION: 1. Stable bilateral patchy infiltrates. Consider atypical pneumonia. 2. Lines and catheters discussed above.
[2020-07-28 09:35] LABS: Ferritin 110.4 ng/mL (22.0-322.0)
[2020-07-28] MEDS ORDERED: Potassium Replacement Protocol 1 EACH MISC MISCELLANE PRN (09:45)
[2020-07-28] MEDS: CHLORHEXIDINE GLUCONATE 15 ML CUP MUCOUS MEM SCH ×2 (09:56→21:01)
[2020-07-28] MEDS: CEFEPIME 2 GM in SODIUM CHLORIDE 0.9% 100 ML IVPB SCH ×2 (09:56→21:00)
[2020-07-28] MEDS: CLOPIDOGREL 75 MG TAB PO SCH (10:00)
[2020-07-28] MEDS: allopurinoL 100 MG TAB PO SCH (10:00)
[2020-07-28] MEDS: SERTRALINE 50 MG TAB PO SCH (10:00)
[2020-07-28] MEDS: FAMOTIDINE 20 MG TAB PO SCH (10:00)
[2020-07-28] MEDS: ZINC SULFATE 220 MG CAP PO SCH (10:00)
[2020-07-28] MEDS: dexAMETHasone 2 MG TAB PO SCH (10:00)
[2020-07-28] MEDS ORDERED: POTASSIUM BICARBONATE/CIT AC 20 MEQ TABLET.EFF NG-TUBE SCH (10:00)
[2020-07-28] MEDS: ASCORBIC ACID 500 MG TAB PO SCH (10:00)
[2020-07-28] MEDS: LOSARTAN 25 MG TAB PO SCH (10:01)
[2020-07-28] MEDS: ISOSORBIDE MONONITRATE ER 30 MG TAB.ER.24H PO SCH (10:01)
[2020-07-28] MEDS: DOCUSATE 100 MG CAP PO SCH ×2 (10:01→21:01)
[2020-07-28] MEDS: ENOXAPARIN 80 MG/0.8 ML SYRINGE SQ SCH ×2 (10:28→21:15)
[2020-07-28] MEDS: SODIUM CHLORIDE 0.9% 1,000 ML IV SCH (12:50)
[2020-07-28] MEDS: REMDESIVIR 100 MG in SODIUM CHLORIDE 0.9% 250 ML IVPB SCH (14:13)
[2020-07-28] MEDS: fentaNYL (PF) 1,000 MCG in SODIUM CHLORIDE 0.9% 80 ML IV SCH (14:29)
--- NOTE | 2020-07-28 16:49 | P.PN ---
Subjective Progress Note Date: 07/28/20 Principal diagnosis: Acute hypoxic respiratory failure secondary to covid 19 pneumonitis. 75-year-old white male patient with history of Alzheimer's dementia, BPH, depression, GERD, hypertension, CAD with previous bypass grafting and stenting, PVD, chronic back pain gout, and past history of sarcoidosis, who was transferred from [facility] where he went for evaluation worsening shortness of breath. Patient normally wears 3 L of oxygen at home at bedtime, and in last 5 days he's been wearing it continuously related to increased work of breathing. Apparently he had 3 ER visits last week for similar complaints. During those visits he was found to be positive for COVID 19. He had positive COVID 19 contacts. His daughter had COVID 19 infection about a month ago. In emergency department today his pulse ox was 80%. He was complaining of worsening shortness of breath and confusion, he was brought in by his son for evaluation. He is on Levaquin for urinary tract infection and pneumonia. He was started on Decadron and albuterol inhaler. He had a CTA chest which was negative for pulmonary embolism. He is afebrile, hemodynamically stable, his pulse ox is 93-95% on 2 L of oxygen, he is awaiting a bed on the medical surgical floor, he was continued on oral Decadron, empiric antibiotics in the form of Levaquin were added. And we were asked to see the patient in consultation to acute on chronic hypoxia related to COVID 19 infection On 07/25/2020 patient seen in follow-up on the general medical surgical floor. he is calm and comfortable, he is currently on 5 L the pulse ox of 93%, breathing comfortably, his been afebrile, hemodynamically has been stable, no complaints of chest pain, his much less confused and she is quite alert and oriented 3, he is providing history of present illness. He continues on oral Decadron, prophylactic dose of Lovenox, he is on Levaquin for recent history of urinary tract infection. His labs have been reviewed, showing limits at 3.2, hemoglobin of 11, fibrinogen is 514, electrolytes and renal profile were unremarkable, CRP has improved, and LDH has significantly improved as well. Pro-calcitonin level was 0.09. The patient is seen today in 07/26/2020 in follow-up on the regular medical floor. He is currently sitting up in a chair at the bedside. He is still quite short of breath. He is now requiring 15 L high flow nasal cannula to maintain O2 saturations in the low 90s. He is afebrile. Fibrinogen 528. Sodium 142. Distant 4.0. Creatinine 1.1. LDH 308. C-reactive protein 8.2. He's been initiated on Remdesivir. 07/27/2020, the patient is in the intensive care unit intubated on a mechanical ventilator. Note that overnight, the patient became confused and altered and he became progressively more short of breath and hypoxic. He had to be transferred to the intensive care unit. In the middle of the evening after midnight, the patient became more hypoxic and short of breath and ultimately had to be intubated after failing high flow oxygen and BiPAP therapy. At this point in time, the patient is intubated on a mechanical ventilator. He is sedated with propofol running at 40 mg per KG per minute. He is on a mechanical ventilation on assist control mode rate of 22 with a tidal volume of 450 and FiO2 of 100% with a PEEP of 8. The blood gases from today showed a pH of 7.28 with a pCO2 of 54 and pO2 72. The patient is currently receiving Decadron, he is also on Remd esivir and he has received a unit of convalescent plasma. His blood work shows an LDH of 842 and CRP of 185 and both of these values are higher compared to yesterday. The patient is also developed an acute kidney injury. Creatinine is up to 1.75. His white cell count 11.2 with hemoglobin 11.6. He is on empiric antibiotic coverage with IV cefepime. He is on Lovenox 40 mg subcu for DVT prophylaxis as the patient's d-dimer was at 1.87. He will be started on enteral feeding for nutritional support. A triple lumen catheter will be established. He does have an arterial line this point in time for hemodynamic monitoring. Reevaluated today on patient remains in the ICU, intubated, mechanically ventilated, he is now on assist control rate of 22, volume is 450 FiO2 is 90%, PEEP is at 10. ABG today showed a pO2 of 98 pCO2 of 42 pH of 7.33. Patient is on propofol at 75 mcg/kg/m, is also on Lovenox, and I increased the dose to 80 mg subcu twice a day. Patient received remdsivir, also received convalescent plasma. Patient is on Decadron and on Lovenox. IV fluid is a 7 5 mL per hour. Patient is also on enteral feeding. Not requiring any pressors. Patient was admitted on 07/24, intubated on 07/27, has been in the ICU since 07/26. Patient has a left IJ triple-lumen catheter and a left radial arterial line. WBC count is 8.7 hemoglobin is 10.3 d-dimer is elevated at 12.35. Electro lites are normal renal profile showed a BUN of 49 and creatinine 1.95. Objective - Vital Signs Vital signs: Vital Signs Temp 98.1 F 07/28/20 08:00 Pulse 78 07/28/20 16:00 Resp 18 07/28/20 16:00 BP 107/59 07/28/20 16:00 Pulse Ox 94 L 07/28/20 16:00 Intake & Output 07/27/20 07/28/20 07/28/20 18:59 06:59 18:59 Intake Total 2064 1036.954 4555.059 Output Total 172 300 450 Balance 1892 3973.792 4198.059 Weight 111.13 kg 111.13 kg Intake: IV 9065 882 4982 0.9 Normal Saline at KVO 60 Remdesivir (Eua) 100 mg 250 In Sodium Chloride 0.9% 250 ml @ 250 mls/hr IVPB DAILY@1300 [facility] Rx#: [id number] Sodium Chloride 0.9% 1, 750 825 750 000 ml @ 75 mls/hr IV . [id number] [facility] Rx#:[id number] Sodium Chloride 0.9% 1, 1000 000 ml @ 999 mls/hr IV . Q1H1M [facility] Rx#:[id number] cefepime 100 Intake, IV Titration 200 481.991 443.059 Amount Cefepime 2 gm In Sodium 100 Chloride 0.9% 100 ml @ 200 mls/hr IVPB ONCE [facility] Rx#:[id number] propofoL 1,000 mg In 200 381.991 443.059 Empty Bag 1 bag @ Titrate IV .Q0M [facility] Rx#: [id number] Tube Feeding 54 216 252 Other 0 90 Output: Urine 172 300 450 Other: Voiding Method Indwelling Catheter Indwelling Catheter Indwelling Catheter ABP, PAP, CO, CI - Last Documented Arterial Blood Pressure 95/46 - Exam GENERAL EXAM: Alert, very pleasant, 75-year-old male, currently sedated, comfortable intubated on a mechanical ventilator. HEAD: Normocephalic/atraumatic. Orogastric tube and orotracheal tube are intact EENT: PERRLA, EOMI, no icterus, no neck masses, no JVD, no stridor. CHEST: No chest wall deformity. Symmetrical expansion. LUNGS: rhonchi at the bases bilaterally. CVS: Regular rate and rhythm, normal S1 and S2, no gallops, no murmurs, no rubs ABDOMEN: Soft, nontender. No hepatosplenomegaly, normal bowel sounds, no guarding or rigidity. EXTREMITIES: No clubbing, no edema, no cyanosis, 2+ pulses and upper and lower extremities. MUSCULOSKELETAL: Muscle strength and tone normal. SKIN: No rashes CENTRAL NERVOUS SYSTEM: Sedated, calm and comfortable cannot assess, patient is sedated. - Labs CBC & Chem 7: 07/28/20 03:05 07/28/20 03:05 Labs: Abnormal Lab Results - Last 24 Hours (Table) 07/27/20 07/28/20 07/28/20 Range/Units 07:30 03:05 03:05 RBC 4.00 L (4.30-5.90) m/uL Hgb 10.3 L (13.0-17.5) gm/dL Hct 32.9 L (39.0-53.0) % RDW 15.9 H (11.5-15.5) % D-Dimer (<0.60) mg/L FEU ABG pH (7.35-7.45) ABG O2 Saturation (94-97) % Chloride (98-107) mmol/L BUN (9-20) mg/dL Creatinine (0.66-1.25) mg/dL Glucose (74-99) mg/dL Calcium (8.4-10.2) mg/dL Lactate Dehydrogenase (313-618) U/L CK-MB (CK-2) (0.0-2.4) ng/mL C-Reactive Protein (<10.0) mg/L Total Protein (6.3-8.2) g/dL Albumin (3.5-5.0) g/dL Procalcitonin 0.18 H 0.20 H (0.02-0.09) ng/mL 07/28/20 07/28/20 07/28/20 Range/Units 03:05 03:05 03:05 RBC (4.30-5.90) m/uL Hgb (13.0-17.5) gm/dL Hct (39.0-53.0) % RDW (11.5-15.5) % D-Dimer 12.35 H (<0.60) mg/L FEU ABG pH (7.35-7.45) ABG O2 Saturation (94-97) % Chloride 110 H (98-107) mmol/L BUN 49 H (9-20) mg/dL Creatinine 1.95 H (0.66-1.25) mg/dL Glucose 156 H (74-99) mg/dL Calcium 7.5 L (8.4-10.2) mg/dL Lactate Dehydrogenase 814 H (313-618) U/L CK-MB (CK-2) 24.2 H (0.0-2.4) ng/mL C-Reactive Protein 217.6 H (<10.0) mg/L Total Protein 5.7 L (6.3-8.2) g/dL Albumin 2.5 L (3.5-5.0) g/dL Procalcitonin (0.02-0.09) ng/mL 07/28/20 Range/Units 04:54 RBC (4.30-5.90) m/uL Hgb (13.0-17.5) gm/dL Hct (39.0-53.0) % RDW (11.5-15.5) % D-Dimer (<0.60) mg/L FEU ABG pH 7.33 L (7.35-7.45) ABG O2 Saturation 97.8 H (94-97) % Chloride (98-107) mmol/L BUN (9-20) mg/dL Creatinine (0.66-1.25) mg/dL Glucose (74-99) mg/dL Calcium (8.4-10.2) mg/dL Lactate Dehydrogenase (313-618) U/L CK-MB (CK-2) (0.0-2.4) ng/mL C-Reactive Protein (<10.0) mg/L Total Protein (6.3-8.2) g/dL Albumin (3.5-5.0) g/dL Procalcitonin (0.02-0.09) ng/mL Microbiology - Last 24 Hours (Table) 07/27/20 01:15 Gram Stain - Preliminary Sputum Sputum Culture - Preliminary Assessment and Plan Assessment: Impression: Acute on chronic hypoxic respiratory failure patient is normally on oxygen at home as 3 L. Acute covid 19 pneumonia History of sarcoidosis. Chronic pain syndrome. History of coronary artery disease and previous CABG and stenting. Acute kidney injury. History of depression. History of gout. History of hypertension. Recommendation: Continue ventilatory support. Objective ventilator settings accordingly and maintain O2 saturation above 90%. Continue Decadron, remdesivir and convalescent plasma. Continue cefepime empirically. Continue to monitor renal profile. Enteral feeding. Hemodynamic support if necessary with pressors. Continue GI and DVT prophylaxis. Continue Lovenox. Overall prognosis is extremely poor and guarded, We'll continue to follow. Patient is critically ill Critical care time is 35 minutes Time with Patient: Greater than 30
--- NOTE | 2020-07-28 20:30 | P.PN ---
Subjective Patient is a 75-year-old male with a known history of sarcoidosis, Alzheimer's dementia, hypertension, GERD, BPH, coronary artery with history of stent placement, peripheral vascular disease and chronic back pain , he , use oxygen at night presents to [facility] initially with complaints of worsening shortness of breath. Patient usually uses oxygen at night but for the past 4 to 5 days he has been using continuously and is also having exertional dyspnea and shortness of breath. Patient was recently tested positive for COVID-19 virus. Patient will take Levaquin for urine tract infection and pneumonia. Patient had CT angiogram of the chest done at [facility] showed no evidence of pulmonary embolism. Patient was transferred to [facility] due to hypoxic respiratory failure and pulse ox was 80% and he presented to ER. Currently on oxygen via nasal cannula. Laboratory test showed D-dimer 0.69, troponin 0 0.020, CRP 145 and LDH 556 patient is currently afebrile while in the hospital. 07/25/2020 Patient is currently lying in bed comfortably. Still requiring oxygen at 5 L by nasal cannula and saturating just above 90%. Hemodynamically stable. Patient is being continued on dexamethasone, Lovenox and is also on antibiotics for recent urinary tract infection. Laboratory data showed WBC 3.2, hemoglobin 11 and renal function is stable. Pulmonary is on board. 07/26/2020 Patient is currently lying in the bed and his oxygen requirements have been increased today. Patient is on 15 L high flow oxygen. Currently afebrile. No complaints of chest pain. Patient is being continued on Remdesivir, dexamethasone and Lovenox. Laboratory data showed Sodium 142, potassium 4.0, BUN 32 and creatinine 1.1 LDH increased to 308 and CRP 8.2. Patient is being transferred to MICU due to worsening respiratory status. 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 Chest x-ray showed diffuse pleural-parenchymal changes with no sizable pneumothorax. Findings are stable. Laboratory data showed WBC 11.2, hemoglobin 11.6, platelets 245 Potassium 4.1, BUN 34 and creatinine 1.75, alk phos 842 and LDH 185 bilirubin level is 0.4 Patient was started on enteral feeding. Patient has been afebrile. Currently saturating at 95% on FiO2 90%. Pulmonary is following. Subjective: This is the first time taking care of the patient 07/28/2020 This is a 75 years old male who was admitted initially for dyspnea related to his bilateral common pneumonia, eventually patient was transferred to the ICU and a cut intubated for acute hypoxic respiratory failure, currently remains in the ICU on mechanical ventilation. Pulmonary/critical care team are following him closely. Labs showing normal WBC today 8.7K, compared to 11 point okay yesterday. Hemoglobin stable at 10.3 and platelets 193K. D-dimer 2 days ago was 1.8, repeat d-dimer today was significantly elevated at 12.3. His Lovenox dose was increased to a therapeutic level at 80 mg twice daily. BMP is reviewed. Her calcitonin is slightly elevated at 0.18 to 0.20. Patient remains on cefepime, oral dexamethasone and Remdesivir. Also is on zinc and vitamin C and Plavix. Also he got covolesant plasma Review of systems: N/a Active Medications Generic Name Dose Route Start Last Admin Trade Name Freq PRN Reason Stop Dose Admin Acetaminophen 650 mg 07/24/20 14:36 07/26/20 00:36 Acetaminophen Tab 325 Mg Tab PO 650 mg Q6HR PRN Administration Mild Pain or Fever > 100.5 Allopurinol 100 mg 07/25/20 09:00 07/28/20 10:00 Allopurinol 100 Mg Tab PO 100 mg DAILY JADEN Administration Ascorbic Acid 1,000 mg 07/27/20 09:00 07/28/20 10:00 Ascorbic Acid 500 Mg Tab PO 1,000 mg DAILY JADEN Administration Atorvastatin Calcium 10 mg 07/24/20 21:00 07/27/20 21:05 Atorvastatin 10 Mg Tab PO 10 mg HS JADEN Administration Chlorhexidine Gluconate 15 ml 07/27/20 09:00 07/28/20 09:56 Chlorhexidine Gluconate 15 Ml Cup MUCOUS MEM 15 ml BID JADEN Administration Clopidogrel Bisulfate 75 mg 07/25/20 09:00 07/28/20 10:00 Clopidogrel 75 Mg Tab PO 75 mg DAILY JADEN Administration Dexamethasone 6 mg 07/24/20 17:00 07/28/20 10:00 Dexamethasone 2 Mg Tab PO 6 mg DAILY JADEN Administration Docusate Sodium 100 mg 07/27/20 21:00 07/28/20 10:01 Docusate 100 Mg Cap PO Not Given BID JADEN Enoxaparin Sodium 80 mg 07/28/20 10:15 07/28/20 10:28 Enoxaparin 80 Mg/0.8 Ml Syringe SQ 80 mg Q12HR JADEN Administration Famotidine 20 mg 07/27/20 09:15 07/28/20 10:00 Famotidine 20 Mg Tab PO 20 mg DAILY JADEN Administration Remdesivir 100 mg/ Sodium 250 mls @ 250 mls/hr 07/27/20 13:00 07/28/20 14:13 Chloride IVPB 07/30/20 13:59 250 mls/hr DAILY@1300 JADEN Administration Propofol 1,000 mg/ IV Solution 100 mls @ 0 mls/hr 07/27/20 01:00 07/28/20 19:03 IV 40 mcg/kg/min .Q0M JADEN 26.671 mls/hr Titration Protocol Titrate Cefepime HCl 2 gm/ Sodium 100 mls @ 25 mls/hr 07/27/20 21:00 07/28/20 09:56 Chloride IVPB 25 mls/hr Q12HR JADEN Administration Sodium Chloride 1,000 mls @ 75 mls/hr 07/27/20 09:30 07/28/20 12:50 Saline 0.9% IV 75 mls/hr .[id number] JADEN Administration Fentanyl Citrate 1,000 mcg/ 100 mls @ 0 mls/hr 07/28/20 11:00 07/28/20 14:29 Sodium Chloride IV 0.5 mcg/kg/hr .Q0M JADEN 5.557 mls/hr Administration Protocol Per Protocol Isosorbide Mononitrate 30 mg 07/25/20 09:00 07/28/20 10:01 Isosorbide Mononitrate Er 30 Mg Tab.Er.24h PO 30 mg DAILY JADEN Administration Losartan Potassium 25 mg 07/25/20 09:00 07/28/20 10:01 Losartan 25 Mg Tab PO 25 mg DAILY JADEN Administration Melatonin 5 mg 07/27/20 21:00 07/27/20 21:05 Melatonin 5 Mg Tablet PO 5 mg HS JADEN Administration Miscellaneous Information 1 each 07/28/20 09:45 Potassium Replacement Protocol 1 Each Misc MISCELLANE DAILY PRN Per Protocol Protocol Naloxone HCl 0.2 mg 07/24/20 14:36 Naloxone 0.4 Mg/Ml 1 Ml Vial IV Q2M PRN Opioid Reversal Nitroglycerin 0.4 mg 07/24/20 16:25 Nitroglycerin Sl Tabs 0.4 Mg Tab SUBLINGUAL Q5M PRN Chest Pain Pantoprazole Sodium 40 mg 07/25/20 07:30 07/28/20 06:18 Pantoprazole 40 Mg Tablet PO 40 mg [id number] JADEN Administration Sertraline HCl 50 mg 07/25/20 09:00 07/28/20 10:00 Sertraline 50 Mg Tab PO 50 mg DAILY JADEN Administration Tamsulosin HCl 0.8 mg 07/24/20 21:00 07/27/20 21:05 Tamsulosin 0.4 Mg Cap.Er.24h PO 0.8 mg HS JADEN Administration Zinc Sulfate 220 mg 07/27/20 09:00 07/28/20 10:00 Zinc Sulfate 220 Mg Cap PO 220 mg DAILY JADEN Administration Objective - Vital Signs Vital signs: Vital Signs Temp 98.1 F 07/28/20 08:00 Pulse 76 07/28/20 17:00 Resp 10 L 07/28/20 17:00 BP 95/51 07/28/20 17:00 Pulse Ox 96 07/28/20 17:00 Intake & Output 07/27/20 07/28/20 07/28/20 18:59 06:59 18:59 Intake Total 2064 5454.826 7130.059 Output Total 172 300 500 Balance 1892 5086.822 2223.059 Weight 111.13 kg 111.13 kg Intake: IV 1585 873 7830 0.9 Normal Saline at KVO 60 Remdesivir (Eua) 100 mg 250 In Sodium Chloride 0.9% 250 ml @ 250 mls/hr IVPB DAILY@1300 [facility] Rx#: [id number] Sodium Chloride 0.9% 1, 750 825 825 000 ml @ 75 mls/hr IV . [id number] [facility] Rx#:[id number] Sodium Chloride 0.9% 1, 1000 000 ml @ 999 mls/hr IV . Q1H1M [facility] Rx#:[id number] cefepime 100 Intake, IV Titration 200 481.991 443.059 Amount Cefepime 2 gm In Sodium 100 Chloride 0.9% 100 ml @ 200 mls/hr IVPB ONCE [facility] Rx#:[id number] propofoL 1,000 mg In 200 381.991 443.059 Empty Bag 1 bag @ Titrate IV .Q0M [facility] Rx#: [id number] Tube Feeding 54 216 288 Other 0 90 Output: Urine 172 300 500 Other: Voiding Method Indwelling Catheter Indwelling Catheter Indwelling Catheter ABP, PAP, CO, CI - Last Documented Arterial Blood Pressure 95/46 - Exam -GENERAL: The patient is intubated and sedated HEENT: Pupils are round and equally reacting to light. EOMI. No scleral icterus. No conjunctival pallor. Normocephalic, atraumatic. No pharyngeal erythema. No thyromegaly. CARDIOVASCULAR: S1 and S2 present. No murmurs, rubs, or gallops. -PULMONARY: Chest is clear to auscultation, no bilateral crepitation ABDOMEN: Soft, nontender, nondistended, normoactive bowel sounds. No palpable organomegaly. MUSCULOSKELETAL: No joint swelling or deformity. EXTREMITIES: No cyanosis, clubbing, or pedal edema. NEUROLOGICAL: Gross neurological examination did not reveal any focal deficits. SKIN: No rashes. no petechiae. - Labs CBC & Chem 7: 07/28/20 03:05 07/28/20 03:05 Labs: Abnormal Lab Results - Last 24 Hours (Table) 07/28/20 07/28/20 07/28/20 Range/Units 03:05 03:05 03:05 RBC 4.00 L (4.30-5.90) m/uL Hgb 10.3 L (13.0-17.5) gm/dL Hct 32.9 L (39.0-53.0) % RDW 15.9 H (11.5-15.5) % D-Dimer 12.35 H (<0.60) mg/L FEU ABG pH (7.35-7.45) ABG O2 Saturation (94-97) % Chloride (98-107) mmol/L BUN (9-20) mg/dL Creatinine (0.66-1.25) mg/dL Glucose (74-99) mg/dL Calcium (8.4-10.2) mg/dL Lactate Dehydrogenase (313-618) U/L CK-MB (CK-2) (0.0-2.4) ng/mL C-Reactive Protein (<10.0) mg/L Total Protein (6.3-8.2) g/dL Albumin (3.5-5.0) g/dL Procalcitonin 0.20 H (0.02-0.09) ng/mL 07/28/20 07/28/20 07/28/20 Range/Units 03:05 03:05 04:54 RBC (4.30-5.90) m/uL Hgb (13.0-17.5) gm/dL Hct (39.0-53.0) % RDW (11.5-15.5) % D-Dimer (<0.60) mg/L FEU ABG pH 7.33 L (7.35-7.45) ABG O2 Saturation 97.8 H (94-97) % Chloride 110 H (98-107) mmol/L BUN 49 H (9-20) mg/dL Creatinine 1.95 H (0.66-1.25) mg/dL Glucose 156 H (74-99) mg/dL Calcium 7.5 L (8.4-10.2) mg/dL Lactate Dehydrogenase 814 H (313-618) U/L CK-MB (CK-2) 24.2 H (0.0-2.4) ng/mL C-Reactive Protein 217.6 H (<10.0) mg/L Total Protein 5.7 L (6.3-8.2) g/dL Albumin 2.5 L (3.5-5.0) g/dL Procalcitonin (0.02-0.09) ng/mL Microbiology - Last 24 Hours (Table) 07/27/20 01:15 Gram Stain - Preliminary Sputum Sputum Culture - Preliminary Assessment and Plan Assessment: Acute hypoxic respiratory failure secondary to COVID-19 bilateral pneumonia. Currently on mechanical ventilator. COVID-19 viral infection bilateral pneumonia Decreased inflammatory markers and d-dimer Chronic hypoxic respiratory failure on oxygen at 3 L via nasal cannula History of sarcoidosis currently not on any steroids. Coronary artery disease history of stent placement Hypertension GERD BPH Gout Plan: This is a 75 years old male who presents with bilateral carotid pneumonia. Continue with mechanical ventilation as per pulmonary/critical care team. Fredi nue with cefepime, dexamethasone, remdesivir and Lovenox therapeutic dose Labs and medication were reviewed.. Continue same treatment. Continue with symptomatic treatment. Resume home medication. Monitor lytes and vitals. DVT and GI prophylaxis. Further recommendationsas per clinical course of the patient DVT prophylaxis: Subcutaneous lovenx GI Prophylaxis: Ppi Prognosis is guarded
[2020-07-28] MEDS ORDERED: ENOXAPARIN 100 MG/ML SYRINGE SQ SCH (21:00)
[2020-07-28] MEDS: TAMSULOSIN 0.4 MG CAP.ER.24H PO SCH (21:02)
[2020-07-28] MEDS: ATORVASTATIN 10 MG TAB PO SCH (21:06)
[2020-07-28] MEDS: MELATONIN 5 MG TABLET PO SCH (21:15)
--- NOTE | 2020-07-28 23:51 | PN ---
PROGRESS NOTE DATE OF SERVICE: 07/28/2020 REASON FOR FOLLOWUP: Acute COVID-19 pneumonia. INTERVAL HISTORY: The patient is currently afebrile. The patient is hemodynamically stable. The patient remains to be intubated on the vent. FiO2 is currently at 75%. No significant purulent secretion through the ET or any diarrhea reported by nursing staff. PHYSICAL EXAMINATION: Blood pressure 104/60, pulse of 89, temperature of 98. He is 93% on 75% FiO2. General description is an elderly male, intubated on the vent. RESPIRATORY SYSTEM: Unlabored breathing, decreased breath sounds at the bases. No wheeze. HEART: S1, S2. Regular rate and rhythm. ABDOMEN: Soft, no tenderness. LABS: Hemoglobin is 10.3, white count 8.7. D-dimer is up to 12.35. is 1.95. CRP is elevated 217. Sputum so far negative. DIAGNOSTIC IMPRESSION AND PLAN: Patient with acute COVID-19 pneumonia with acute respiratory failure in this patient currently covered with remdesivir, zinc, Lovenox therapeutic dose as well as dexamethasone to continue along with respiratory support and monitor clinical course closely. MMODL / IJN: [id number] /
[2020-07-29] MEDS: SODIUM CHLORIDE 0.9% 1,000 ML IV SCH ×2 (00:17→15:30)
[2020-07-29 04:51] LABS: HCT 30.9 % (39.0-53.0); HGB 9.9 gm/dL (13.0-17.5); Hypochromasia Moderate; MCH 25.9 pg (25.0-35.0); MCHC 31.9 g/dL (31.0-37.0); MCV 81.3 fL (80.0-100.0); Mean Platelet Volume 8.3; Platelet Count 155 k/uL (150-450); RBC 3.81 m/uL (4.30-5.90); RDW 15.9 % (11.5-15.5); WBC 9.9 k/uL (3.8-10.6)
[2020-07-29 05:19] LABS: Calcium 7.4 mg/dL (8.4-10.2); Potassium 4.3 mmol/L (3.5-5.1)
[2020-07-29] MEDS: fentaNYL (PF) 1,000 MCG in SODIUM CHLORIDE 0.9% 80 ML IV SCH ×2 (05:42→17:57)
[2020-07-29 06:08] LABS: ABG Base Excess -4.1 mmol/L; ABG HCO3 22 mmol/L (21-25); ABG Oxygen Saturation 97.9 % (94-97); ABG PCO2 43 mmHg (35-45); ABG PH 7.32 (7.35-7.45); ABG PO2 95 mmHg (83-108); ABG TCO2 23 mmol/L (19-24)
[2020-07-29] MEDS: CEFEPIME 2 GM in SODIUM CHLORIDE 0.9% 100 ML IVPB SCH ×2 (08:18→19:52)
[2020-07-29] MEDS: ASCORBIC ACID 500 MG TAB PO SCH (08:19)
[2020-07-29] MEDS: dexAMETHasone 2 MG TAB PO SCH (08:19)
[2020-07-29] MEDS: FAMOTIDINE 20 MG TAB PO SCH (08:19)
[2020-07-29] MEDS: ENOXAPARIN 80 MG/0.8 ML SYRINGE SQ SCH ×2 (08:19→19:53)
[2020-07-29] MEDS: allopurinoL 100 MG TAB PO SCH (08:20)
[2020-07-29] MEDS: ZINC SULFATE 220 MG CAP PO SCH (08:20)
[2020-07-29] MEDS: PANTOPRAZOLE 40 MG TABLET PO SCH (08:20)
[2020-07-29] MEDS: LOSARTAN 25 MG TAB PO SCH (08:20)
[2020-07-29] MEDS: CHLORHEXIDINE GLUCONATE 15 ML CUP MUCOUS MEM SCH ×2 (08:20→19:52)
[2020-07-29] MEDS: SERTRALINE 50 MG TAB PO SCH (08:20)
[2020-07-29] MEDS: CLOPIDOGREL 75 MG TAB PO SCH (08:20)
[2020-07-29] MEDS: ISOSORBIDE MONONITRATE ER 30 MG TAB.ER.24H PO SCH (08:20)
[2020-07-29] MEDS: DOCUSATE 100 MG CAP PO SCH ×2 (08:23→19:53)
--- NOTE | 2020-07-29 08:34 | XR ---
EXAMINATION TYPE: XR chest 1V portable DATE OF EXAM: 07/29/2020 Comparison: 07/28/2020 Clinical History: 75-year-old male Tube placement Findings: ET tube satisfactory. NG tube courses below the diaphragm. Left CVC tip projecting towards the right, possibly coursing into the right brachiocephalic vein. Loop recorder device along the left heart mar gin. Median sternotomy wires and post-CABG changes. Right paratracheal soft tissue prominence is unch anged. Heart mildly enlarged. Patchy confluent peripheral mid and lower lung airspace opacities persist, min imally improved on the right. Impression: 1. Left IJ CVC tip continues to course towards the right and is directed superolaterally, possibly wi thin the right brachycephalic vein. 2. Bilateral airspace disease persists, minimally improved on the right. 3. Continued right paratracheal soft tissue prominence compatible with lymphadenopathy seen on the angela pickett's outside CT chest of 07/22/2020.
[2020-07-29] MEDS ORDERED: propofoL 100 ML IV ONE (11:19)
[2020-07-29 11:25] LABS: Glucose,Whole Blood 162 mg/dL (75-99)
[2020-07-29] MEDS: INSULIN ASPART (NovoLOG) 100 UNIT/ML VIAL SQ SCH ×3 (12:02→23:47)
--- NOTE | 2020-07-29 12:05 | P.PN ---
Subjective Progress Note Date: 07/29/20 Principal diagnosis: Acute COVID 19 infection 75-year-old white male patient with history of Alzheimer's dementia, BPH, depression, GERD, hypertension, CAD with previous bypass grafting and stenting, PVD, chronic back pain gout, and past history of sarcoidosis, who was transferre d from [facility] where he went for evaluation worsening shortness of breath. Patient normally wears 3 L of oxygen at home at bedtime, and in last 5 days he's been wearing it continuously related to increased work of breathing. Apparently he had 3 ER visits last week for similar complaints. During those visits he was found to be positive for COVID 19. He had positive COVID 19 contacts. His daughter had COVID 19 infection about a month ago. In emergency department today his pulse ox was 80%. He was complaining of worsening shortness of breath and confusion, he was brought in by his son for evaluation. He is on Levaquin for urinary tract infection and pneumonia. He was started on Decadron and albuterol inhaler. He had a CTA chest which was negative for pulmonary embolism. He is afebrile, hemodynamically stable, his pulse ox is 93-95% on 2 L of oxygen, he is awaiting a bed on the medical surgical floor, he was continued on oral Decadron, empiric antibiotics in the form of Levaquin were added. And we were asked to see the patient in consultation to acute on chronic hypoxia related to COVID 19 infection On 07/25/2020 patient seen in follow-up on the general medical surgical floor. he is calm and comfortable, he is currently on 5 L the pulse ox of 93%, breat med comfortably, his been afebrile, hemodynamically has been stable, no complaints of chest pain, his much less confused and she is quite alert and oriented 3, he is providing history of present illness. He continues on oral Decadron, prophylactic dose of Lovenox, he is on Levaquin for recent history of urinary tract infection. His labs have been reviewed, showing limits at 3.2, hemoglobin of 11, fibrinogen is 514, electrolytes and renal profile were unremarkable, CRP has improved, and LDH has significantly improved as well. Pro-calcitonin level was 0.09. On 07/29/2020 patient is seen in follow-up in intensive care unit, he was intubated on 07/27/2020 for worsening hypoxic respiratory failure related to COVID 19 pneumonia. Today he remains intubated, sedated on mechanical ventilator, current vent settings are assist-control mode of ventilation with a rate of 22, tidal vitamins 450, FiO2 of 75% and PEEP of 10, this morning his blood gases showed pO2 of 95, pCO2 43, pH is 7.32. IV include 0.9 normal saline at 75 ML per hour, fentanyl drip is at 0.5 mics per kilo per minute, and improving and is at 45 mics per kilo per minute. No vasopressor support. He is in sinus mechanism with frequent PVCs, today is day 3 of Remdesivir, and patient received 1 unit of convalescent plasma. Remains on oral Decadron at 6 mg daily, via the OG tube. He is on empiric antibiotics in the form of cefepime. His sputum culture has shown no growth. Did have a low-grade fever this morning wi th a temp of 99.9F. Today's labs have been reviewed, showing white blood cell count 9.9, hemoglobin of 9.9, sodium was 42, potassium is 4.3, chloride is 112, CO2 22, BUN is 51, creatinine is 1.61, slightly improved renal function. His last pro-calcitonin was trending up on yesterday's labs, and up to 0.20. Today's chest x-ray has been reviewed showing bilateral airspace disease normal improvements on the right. He is receiving vital high-protein at a rate of 10 ML per hour, RD is following, no acute events overnight, patient is resting comfortably on the vent. Objective - Vital Signs Vital signs: Vital Signs Temp 99.9 F H 07/29/20 08:00 Pulse 98 07/29/20 10:00 Resp 21 07/29/20 10:00 BP 131/65 07/29/20 10:00 Pulse Ox 88 L 07/29/20 10:00 Intake & Output 07/28/20 07/29/20 07/29/20 18:59 06:59 18:59 Intake Total 0043.268 2279.018 588 Output Total 550 745 200 Balance 1414.708 688.018 388 Weight 111.13 kg Intake: IV 1250 900 418 Cefepime 2 gm In Sodium 100 Chloride 0.9% 100 ml @ 25 mls/hr IVPB Q12HR [facility] Rx #:[id number] Remdesivir (Eua) 100 mg 250 In Sodium Chloride 0.9% 250 ml @ 250 mls/hr IVPB DAILY@1300 [facility] Rx#: [id number] Sodium Chloride 0.9% 1, 900 900 300 000 ml @ 75 mls/hr IV . [id number] [facility] Rx#:[id number] cefepime 100 pressure bags 18 Intake, IV Titration 444.708 373.018 100 Amount fentaNYL (PF) 1,000 mcg 84.559 In Sodium Chloride 0.9% 80 ml @ Per Protocol IV . Q0M [facility] Rx#:[id number] propofoL 1,000 mg In 444.708 288.459 100 Empty Bag 1 bag @ Titrate IV .Q0M [facility] Rx#: [id number] Tube Feeding 270 160 40 Other 30 Output: Urine 550 745 200 Other: Voiding Method Indwelling Catheter Indwelling Catheter Indwelling Catheter # Voids 2 ABP, PAP, CO, CI - Last Documented Arterial Blood Pressure 89/37 - Exam GENERAL EXAM: 75-year-old male, sedated, intubated on mechanical ventilator, assist control mode of ventilation comfortable in no apparent distress. HEAD: Normocephalic/atraumatic. EYES: Normal reaction of pupils, equal size. Conjunctiva pink, sclera white. NOSE: Clear with pink turbinates. THROAT: No erythema or exudates. NECK: No masses, no JVD, no thyroid enlargement, no adenopathy. CHEST: No chest wall deformity. Symmetrical expansion. LUNGS: Equal air entry with no crackles, wheeze, rhonchi or dullness. CVS: Regular rate and rhythm, normal S1 and S2, no gallops, no murmurs, no rubs ABDOMEN: Soft, nontender. No hepatosplenomegaly, normal bowel sounds, no guarding or rigidity. EXTREMITIES: No clubbing, no edema, no cyanosis, 2+ pulses and upper and lower extremities. MUSCULOSKELETAL: Muscle strength and tone normal. SPINE: No scoliosis or deformity SKIN: No rashes CENTRAL NERVOUS SYSTEM: Sedated, intubated No focal deficits, tone is normal in all 4 extremities. - Labs CBC & Chem 7: 07/29/20 04:35 07/29/20 04:35 Labs: Abnormal Lab Results - Last 24 Hours (Table) 07/29/20 07/29/20 07/29/20 Range/Units 04:35 04:35 06:01 RBC 3.81 L (4.30-5.90) m/uL Hgb 9.9 L (13.0-17.5) gm/dL Hct 30.9 L (39.0-53.0) % RDW 15.9 H (11.5-15.5) % ABG pH 7.32 L (7.35-7.45) ABG O2 Saturation 97.9 H (94-97) % Chloride 112 H (98-107) mmol/L BUN 51 H (9-20) mg/dL Creatinine 1.61 H (0.66-1.25) mg/dL Glucose 119 H (74-99) mg/dL POC Glucose (mg/dL) (75-99) mg/dL Calcium 7.4 L (8.4-10.2) mg/dL 07/29/20 Range/Units 11:24 RBC (4.30-5.90) m/uL Hgb (13.0-17.5) gm/dL Hct (39.0-53.0) % RDW (11.5-15.5) % ABG pH (7.35-7.45) ABG O2 Saturation (94-97) % Chloride (98-107) mmol/L BUN (9-20) mg/dL Creatinine (0.66-1.25) mg/dL Glucose (74-99) mg/dL POC Glucose (mg/dL) 162 H (75-99) mg/dL Calcium (8.4-10.2) mg/dL Microbiology - Last 24 Hours (Table) 07/27/20 01:15 Gram Stain - Final Sputum Sputum Culture - Final Assessment and Plan Plan: Assessment: #1. Acute COVID 19 pneumonia, with worsening hypoxic respiratory failure, requiring intubation and placement on mechanical ventilator on 07/27/2020. Today on 07/29/2020 patient remains on mechanical ventilator on assist control mode of ventilation. Still requiring high FiO2 and increased PEEP, currently up to 12. #2. Acute on chronic hypoxic respiratory failure related to the above #3. History of sarcoidosis #4. Chronic hypoxic respiratory failure, normally wears 3 L of oxygen at bedtime only #5. History of hypertension #6. GERD/reflux #7. Gout #8. Depression #9. BPH #10. Chronic pain syndrome #11. Recent urinary tract infection #12. History of coronary artery disease with previous bypass grafting and stenting #13. Acute kidney injury, improving Plan: We will continue mechanical ventilator support, still requiring high amount of FiO2, today's blood gases have been reviewed, FiO2 will be dropped down to 60% and people be increased to 12. Continue Diprivan and fentanyl for sedation, IV hydration with 0.9 normal saline, tube feedings. Continue cefepime will obtain follow-up pro-calcitonin. We'll obtain inflammatory markers, patient is on day 3 of Remdesivir, received 1 unit of convalescent plasma. We'll continue the rapeutic doses of Lovenox. Not ready for any weaning trials, requiring high FiO2 and high PEEP. I performed a history & physical examination of the patient and discussed their management with my nurse practitioner, Destiny Holley. I reviewed the nurse practitioner's note and agree with the documented findings and plan of care. Lung sounds are positive for basilar crackles. The findings and the impression was discussed with the patient. I attest to the documentation by the nurse practitioner. Time with Patient: Greater than 30
[2020-07-29] MEDS: REMDESIVIR 100 MG in SODIUM CHLORIDE 0.9% 250 ML IVPB SCH (12:10)
[2020-07-29 16:52] LABS: Glucose,Whole Blood 180 mg/dL (75-99)
[2020-07-29] MEDS: NOREPINEPHRINE 8 MG in SODIUM CHLORIDE 0.9% 250 ML IV SCH (17:20)
[2020-07-29] MEDS: MELATONIN 5 MG TABLET PO SCH (19:53)
[2020-07-29] MEDS: TAMSULOSIN 0.4 MG CAP.ER.24H PO SCH (19:53)
[2020-07-29] MEDS: ATORVASTATIN 10 MG TAB PO SCH (19:53)
[2020-07-29] MEDS ORDERED: ACETAMINOPHEN IV (For NPO) 1,000 MG in EMPTY BAG 1 BAG IVPB ONE (20:50)
--- NOTE | 2020-07-29 21:45 | P.PN ---
Subjective Patient is a 75-year-old male with a known history of sarcoidosis, Alzheimer's dementia, hypertension, GERD, BPH, coronary artery with history of stent placement, peripheral vascular disease and chronic back pain , he , use oxygen at night presents to [facility] initially with complaints of worsening shortness of breath. Patient usually uses oxygen at night but for the past 4 to 5 days he has been using continuously and is also having exertional dyspnea and shortness of breath. Patient was recently tested positive for COVID-19 virus. Patient will take Levaquin for urine tract infection and pneumonia. Patient had CT angiogram of the chest done at [facility] showed no evidence of pulmonary embolism. Patient was transferred to [facility] due to hypoxic respiratory failure and pulse ox was 80% and he presented to ER. Currently on oxygen via nasal cannula. Laboratory test showed D-dimer 0.69, troponin 0 0.020, CRP 145 and LDH 556 patient is currently afebrile while in the hospital. 07/25/2020 Patient is currently lying in bed comfortably. Still requiring oxygen at 5 L by nasal cannula and saturating just above 90%. Hemodynamically stable. Patient is being continued on dexamethasone, Lovenox and is also on antibiotics for recent urinary tract infection. Laboratory data showed WBC 3.2, hemoglobin 11 and renal function is stable. Pulmonary is on board. 07/26/2020 Patient is currently lying in the bed and his oxygen requirements have been increased today. Patient is on 15 L high flow oxygen. Currently afebrile. No complaints of chest pain. Patient is being continued on Remdesivir, dexamethasone and Lovenox. Laboratory data showed Sodium 142, potassium 4.0, BUN 32 and creatinine 1.1 LDH increased to 308 and CRP 8.2. Patient is being transferred to MICU due to worsening respiratory status. 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 Chest x-ray showed diffuse pleural-parenchymal changes with no sizable pneumothorax. Findings are stable. Laboratory data showed WBC 11.2, hemoglobin 11.6, platelets 245 Potassium 4.1, BUN 34 and creatinine 1.75, alk phos 842 and LDH 185 bilirubin level is 0.4 Patient was started on enteral feeding. Patient has been afebrile. Currently saturating at 95% on FiO2 90%. Pulmonary is following. Subjective: This is the first time taking care of the patient 07/28/2020 This is a 75 years old male who was admitted initially for dyspnea related to his bilateral common pneumonia, eventually patient was transferred to the ICU and a cut intubated for acute hypoxic respiratory failure, currently remains in the ICU on mechanical ventilation. Pulmonary/critical care team are following him closely. Labs showing normal WBC today 8.7K, compared to 11 point okay yesterday. Hemoglobin stable at 10.3 and platelets 193K. D-dimer 2 days ago was 1.8, repeat d-dimer today was significantly elevated at 12.3. His Lovenox dose was increased to a therapeutic level at 80 mg twice daily. BMP is reviewed. Her calcitonin is slightly elevated at 0.18 to 0.20. Patient remains on cefepime, oral dexamethasone and Remdesivir. Also is on zinc and vitamin C and Plavix. Also he got covolesant plasma 07/29/2020 Patient is in the ICU on mechanical ventilation. Patient is found closely by pulmonary/critical care team. He had low-grade temperature today. He is tachycardic and tachypneic. WBC remains to be normal. Labs reviewed, Sodium is slightly elevated at 147, rest of the BMP is unremarkable with normal creatinine at 0.6. Glucose is better controlled Remains on therapeutic dose of Lovenox 80 mg twice daily, dexamethasone, tomorrow patient was then is as dose of Remdesivir. Continue with Plavix, vitamin C and zinc Review of systems: N/a Active Medications Generic Name Dose Route Start Last Admin Trade Name Freq PRN Reason Stop Dose Admin Acetaminophen 650 mg 07/24/20 14:36 07/26/20 00:36 Acetaminophen Tab 325 Mg Tab PO 650 mg Q6HR PRN Administration Mild Pain or Fever > 100.5 Allopurinol 100 mg 07/25/20 09:00 07/29/20 08:20 Allopurinol 100 Mg Tab PO 100 mg DAILY JADEN Administration Ascorbic Acid 1,000 mg 07/27/20 09:00 07/29/20 08:19 Ascorbic Acid 500 Mg Tab PO 1,000 mg DAILY JADEN Administration Atorvastatin Calcium 10 mg 07/24/20 21:00 07/29/20 19:53 Atorvastatin 10 Mg Tab PO 10 mg HS JADEN Administration Chlorhexidine Gluconate 15 ml 07/27/20 09:00 07/29/20 19:52 Chlorhexidine Gluconate 15 Ml Cup MUCOUS MEM 15 ml BID JADEN Administration Clopidogrel Bisulfate 75 mg 07/25/20 09:00 07/29/20 08:20 Clopidogrel 75 Mg Tab PO 75 mg DAILY JADEN Administration Dexamethasone 6 mg 07/24/20 17:00 07/29/20 08:19 Dexamethasone 2 Mg Tab PO 6 mg DAILY JADEN Administration Docusate Sodium 100 mg 07/27/20 21:00 07/29/20 19:53 Docusate 100 Mg Cap PO Not Given BID JADEN Enoxaparin Sodium 80 mg 07/28/20 10:15 07/29/20 19:53 Enoxaparin 80 Mg/0.8 Ml Syringe SQ 80 mg Q12HR JADEN Administration Famotidine 20 mg 07/27/20 09:15 07/29/20 08:19 Famotidine 20 Mg Tab PO 20 mg DAILY JADEN Administration Remdesivir 100 mg/ Sodium 250 mls @ 250 mls/hr 07/27/20 13:00 07/29/20 12:10 Chloride IVPB 07/30/20 13:59 250 mls/hr DAILY@1300 JADEN Administration Propofol 1,000 mg/ IV Solution 100 mls @ 0 mls/hr 07/27/20 01:00 07/29/20 19:53 IV 70 mcg/kg/min .Q0M JADEN 46.675 mls/hr Administration Protocol Titrate Cefepime HCl 2 gm/ Sodium 100 mls @ 25 mls/hr 07/27/20 21:00 07/29/20 19:52 Chloride IVPB 25 mls/hr Q12HR JADEN Administration Sodium Chloride 1,000 mls @ 75 mls/hr 07/27/20 09:30 07/29/20 15:30 Saline 0.9% IV 75 mls/hr .[id number] JADEN Administration Fentanyl Citrate 1,000 mcg/ 100 mls @ 0 mls/hr 07/28/20 11:00 07/29/20 17:57 Sodium Chloride IV 1 mcg/kg/hr .Q0M JADEN 11.113 mls/hr Administration Protocol Per Protocol Norepinephrine Bitartrate 8 mg 258 mls @ 10.752 mls/hr 07/29/20 17:30 07/29/20 17:20 / Sodium Chloride IV 0.05 mcg/kg/min .Q24H JADEN 10.752 mls/hr Administration Protocol 0.05 MCG/KG/MIN Insulin Aspart 0 unit 07/29/20 12:00 07/29/20 17:03 Insulin Aspart (Novolog) 100 Unit/Ml Vial SQ 4 unit Q6H JADEN Administration Protocol Isosorbide Mononitrate 30 mg 07/25/20 09:00 07/29/20 08:20 Isosorbide Mononitrate Er 30 Mg Tab.Er.24h PO 30 mg DAILY JADEN Administration Losartan Potassium 25 mg 07/25/20 09:00 07/29/20 08:20 Losartan 25 Mg Tab PO 25 mg DAILY JADEN Administration Melatonin 5 mg 07/27/20 21:00 07/29/20 19:53 Melatonin 5 Mg Tablet PO 5 mg HS JADEN Administration Miscellaneous Information 1 each 07/28/20 09:45 Potassium Replacement Protocol 1 Each Misc MISCELLANE DAILY PRN Per Protocol Protocol Naloxone HCl 0.2 mg 07/24/20 14:36 Naloxone 0.4 Mg/Ml 1 Ml Vial IV Q2M PRN Opioid Reversal Nitroglycerin 0.4 mg 07/24/20 16:25 Nitroglycerin Sl Tabs 0.4 Mg Tab SUBLINGUAL Q5M PRN Chest Pain Pantoprazole Sodium 40 mg 07/25/20 07:30 07/29/20 08:20 Pantoprazole 40 Mg Tablet PO Not Given AC-BRKFST JADEN Sertraline HCl 50 mg 07/25/20 09:00 07/29/20 08:20 Sertraline 50 Mg Tab PO 50 mg DAILY JADEN Administration Tamsulosin HCl 0.8 mg 07/24/20 21:00 07/29/20 19:53 Tamsulosin 0.4 Mg Cap.Er.24h PO Not Given HS JADEN Zinc Sulfate 220 mg 07/27/20 09:00 07/29/20 08:20 Zinc Sulfate 220 Mg Cap PO 220 mg DAILY JADEN Administration Objective - Vital Signs Vital signs: Vital Signs Temp 100.2 F H 07/29/20 12:00 Pulse 90 07/29/20 14:00 Resp 10 L 07/29/20 14:00 BP 106/53 07/29/20 14:00 Pulse Ox 94 L 07/29/20 14:00 Intake & Output 07/28/20 07/29/20 07/29/20 18:59 06:59 18:59 Intake Total 5345.514 7853.018 1135.532 Output Total 550 745 385 Balance 1414.708 688.018 750.532 Weight 111.13 kg Intake: IV 1250 900 742 Cefepime 2 gm In Sodium 100 Chloride 0.9% 100 ml @ 25 mls/hr IVPB Q12HR JAD[facility] Rx #:[id number] Remdesivir (Eua) 100 mg 250 In Sodium Chloride 0.9% 250 ml @ 250 mls/hr IVPB DAILY@1300 JADEN Rx#: [id number] Sodium Chloride 0.9% 1, 900 900 600 000 ml @ 75 mls/hr IV . [id number] JADEN Rx#:[id number] cefepime 100 pressure bags 42 Intake, IV Titration 444.708 373.018 253.532 Amount fentaNYL (PF) 1,000 mcg 84.559 53.532 In Sodium Chloride 0.9% 80 ml @ Per Protocol IV . Q0M JADEN Rx#:[id number] propofoL 1,000 mg In 444.708 288.459 200.000 Empty Bag 1 bag @ Titrate IV .Q0M [facility] Rx#: [id number] Tube Feeding 270 160 80 Other 60 Output: Urine 550 745 385 Other: Voiding Method Indwelling Catheter Indwelling Catheter Indwelling Catheter # Voids 2 ABP, PAP, CO, CI - Last Documented Arterial Blood Pressure 89/37 - Exam -GENERAL: The patient is intubated and sedated HEENT: Pupils are round and equally reacting to light. EOMI. No scleral icterus. No conjunctival pallor. Normocephalic, atraumatic. No pharyngeal erythema. No thyromegaly. CARDIOVASCULAR: S1 and S2 present. No murmurs, rubs, or gallops. -PULMONARY: Chest is clear to auscultation, no bilateral crepitation ABDOMEN: Soft, nontender, nondistended, normoactive bowel sounds. No palpable organomegaly. MUSCULOSKELETAL: No joint swelling or deformity. EXTREMITIES: No cyanosis, clubbing, or pedal edema. NEUROLOGICAL: Gross neurological examination did not reveal any focal deficits. SKIN: No rashes. no petechiae. - Labs CBC & Chem 7: 07/29/20 04:35 07/29/20 04:35 Labs: Abnormal Lab Results - Last 24 Hours (Table) 1107/29/20 07/29/20 Range/Units 04:35 04:35 06:01 RBC 3.81 L (4.30-5.90) m/uL Hgb 9.9 L (13.0-17.5) gm/dL Hct 30.9 L (39.0-53.0) % RDW 15.9 H (11.5-15.5) % ABG pH 7.32 L (7.35-7.45) ABG O2 Saturation 97.9 H (94-97) % Chloride 112 H (98-107) mmol/L BUN 51 H (9-20) mg/dL Creatinine 1.61 H (0.66-1.25) mg/dL Glucose 119 H (74-99) mg/dL POC Glucose (mg/dL) (75-99) mg/dL Calcium 7.4 L (8.4-10.2) mg/dL 07/29/20 07/29/20 Range/Units 11:24 16:51 RBC (4.30-5.90) m/uL Hgb (13.0-17.5) gm/dL Hct (39.0-53.0) % RDW (11.5-15.5) % ABG pH (7.35-7.45) ABG O2 Saturation (94-97) % Chloride (98-107) mmol/L BUN (9-20) mg/dL Creatinine (0.66-1.25) mg/dL Glucose (74-99) mg/dL POC Glucose (mg/dL) 162 H 180 H (75-99) mg/dL Calcium (8.4-10.2) mg/dL Microbiology - Last 24 Hours (Table) 07/27/20 01:15 Gram Stain - Final Sputum Sputum Culture - Final Assessment and Plan Assessment: Acute hypoxic respiratory failure secondary to COVID-19 bilateral pneumonia. Currently on mechanical ventilator. COVID-19 viral infection bilateral pneumonia Decreased inflammatory markers and d-dimer Chronic hypoxic respiratory failure on oxygen at 3 L via nasal cannula History of sarcoidosis currently not on any steroids. Coronary artery disease history of stent placement Hypertension GERD BPH Gout Plan: This is a 75 years old male who presents with bilateral carotid pneumonia. Continue with mechanical ventilation as per pulmonary/critical care team. Continue with cefepime, dexamethasone, remdesivir and Lovenox therapeutic dose Labs and medication were reviewed.. Continue same treatment. Continue with symptomatic treatment. Resume home medication. Monitor lytes and vitals. DVT and GI prophylaxis. Further recommendationsas per clinical course of the patient DVT prophylaxis: Subcutaneous lovenx GI Prophylaxis: Ppi Prognosis is guarded
--- NOTE | 2020-07-29 22:47 | PN ---
PROGRESS NOTE DATE OF SERVICE: 07/29/2020 REASON FOR FOLLOWUP: Acute COVID-19 pneumonia. INTERVAL HISTORY: The patient has been running a low-grade fever today with 100.7, 100.9 this evening. The patient is hemodynamically stable. FiO2 is currently stable at 50%. No significant purulent secretions in the ET or any diarrhea reported by the nursing staff. PHYSICAL EXAMINATION: Blood pressure is 98/48 with a pulse of 109, temperature 100.9. He is 94% on 50% FiO2. General description is an elderly male, intubated on the vent. RESPIRATORY SYSTEM: Unlabored breathing with decreased breath sounds at the base. No wheeze. HEART: S1, S2. Regular rate and rhythm. ABDOMEN: Soft. No tenderness. LABS/IMAGING: Hemoglobin 9.8, white count 9.9, creatinine 1.61. Sputum from 07/27/2020 has been negative so far. The patient did have a chest x-ray: bilateral airspace disease persists; minimal improvement on the right. DIAGNOSTIC IMPRESSION AND PLAN: Patient with acute respiratory failure which is likely multifactorial in this patient who did have acute COVID-19 pneumonia, for which the patient currently is getting remdesivir, zinc, Lovenox and dexamethasone. Now with evidence of a low-grade fever. Cultures will be repeated. Patient's current antibiotics to continue. Will adjust antibiotics further on the basis of the culture report. Continue with supportive care. MMODL / IJN: [id number] /
[2020-07-29 23:49] LABS: Glucose,Whole Blood 151 mg/dL (75-99)
[2020-07-30] MEDS: SODIUM CHLORIDE 0.9% 1,000 ML IV SCH ×2 (04:10→17:47)
[2020-07-30 05:52] LABS: ABG Base Excess -6.3 mmol/L; ABG HCO3 20 mmol/L (21-25); ABG Oxygen Saturation 94.1 % (94-97); ABG PCO2 40 mmHg (35-45); ABG PH 7.31 (7.35-7.45); ABG PO2 71 mmHg (83-108); ABG TCO2 21 mmol/L (19-24); Allen Test Performed? Yes
[2020-07-30 05:55] LABS: Glucose,Whole Blood 112 mg/dL (75-99)
[2020-07-30] MEDS: INSULIN ASPART (NovoLOG) 100 UNIT/ML VIAL SQ SCH ×3 (06:05→19:49)
--- NOTE | 2020-07-30 07:04 | XR ---
EXAMINATION TYPE: XR chest 1V portable DATE OF EXAM: 07/30/2020 COMPARISON: 07/29/2020 HISTORY: SOB, Follow Up FINDINGS: Indwelling tubes and catheters are unchanged. Scattered airspace opacities persist essentially unchanged. Masslike density right paratracheal regio n is unchanged. Stable appearance of the cardio-mediastinal structures at this time. Pleural effusion unchanged. IMPRESSION: 1. Stable portable chest. Clinical correlation and follow up until resolution is recommended.
[2020-07-30] MEDS: CEFEPIME 2 GM in SODIUM CHLORIDE 0.9% 100 ML IVPB SCH ×2 (08:10→21:58)
[2020-07-30] MEDS: ASCORBIC ACID 500 MG TAB PO SCH (08:11)
[2020-07-30] MEDS: CHLORHEXIDINE GLUCONATE 15 ML CUP MUCOUS MEM SCH ×2 (08:11→21:57)
[2020-07-30] MEDS: ENOXAPARIN 80 MG/0.8 ML SYRINGE SQ SCH ×2 (08:11→22:03)
[2020-07-30] MEDS: allopurinoL 100 MG TAB PO SCH (08:12)
[2020-07-30] MEDS: CLOPIDOGREL 75 MG TAB PO SCH (08:13)
[2020-07-30] MEDS: dexAMETHasone 2 MG TAB PO SCH (08:13)
[2020-07-30] MEDS: DOCUSATE 100 MG CAP PO SCH ×2 (08:14→21:58)
[2020-07-30] MEDS: FAMOTIDINE 20 MG TAB PO SCH (08:14)
[2020-07-30] MEDS: ISOSORBIDE MONONITRATE ER 30 MG TAB.ER.24H PO SCH (08:15)
[2020-07-30] MEDS: SERTRALINE 50 MG TAB PO SCH (08:15)
[2020-07-30] MEDS: LOSARTAN 25 MG TAB PO SCH (08:15)
[2020-07-30] MEDS: ZINC SULFATE 220 MG CAP PO SCH (08:15)
[2020-07-30] MEDS: PANTOPRAZOLE 40 MG TABLET PO SCH (08:17)
[2020-07-30 12:02] LABS: Glucose,Whole Blood 157 mg/dL (75-99)
[2020-07-30] MEDS: ACETAMINOPHEN IV (For NPO) 1,000 MG in EMPTY BAG 1 BAG IVPB PRN ×2 (12:31→19:01)
[2020-07-30] MEDS: REMDESIVIR 100 MG in SODIUM CHLORIDE 0.9% 250 ML IVPB SCH (12:31)
--- NOTE | 2020-07-30 16:08 | P.PN ---
Subjective Progress Note Date: 07/30/20 Principal diagnosis: Acute CoVID 19 infection 75-year-old white male patient with history of Alzheimer's dementia, BPH, depression, GERD, hypertension, CAD with previous bypass grafting and stenting, PVD, chronic back pain gout, and past history of sarcoidosis, who was transferr ed from [facility] where he went for evaluation worsening shortness of breath. Patient normally wears 3 L of oxygen at home at bedtime, and in last 5 days he's been wearing it continuously related to increased work of breathing. Apparently he had 3 ER visits last week for similar complaints. During those visits he was found to be positive for COVID 19. He had positive COVID 19 contacts. His daughter had COVID 19 infection about a month ago. In emergency department today his pulse ox was 80%. He was complaining of worsening shortness of breath and confusion, he was brought in by his son for evaluation. He is on Levaquin for urinary tract infection and pneumonia. He was started on Decadron and albuterol inhaler. He had a CTA chest which was negative for pulmonary embolism. He is afebrile, hemodynamically stable, his pulse ox is 93-95% on 2 L of oxygen, he is awaiting a bed on the medical surgical floor, he was continued on oral Decadron, empiric antibiotics in the form of Levaquin were added. And we were asked to see the patient in consultation to acute on chronic hypoxia related to COVID 19 infection On 07/25/2020 patient seen in follow-up on the general medical surgical floor. he is calm and comfortable, he is currently on 5 L the pulse ox of 93%, marty thing comfortably, his been afebrile, hemodynamically has been stable, no complaints of chest pain, his much less confused and she is quite alert and oriented 3, he is providing history of present illness. He continues on oral Decadron, prophylactic dose of Lovenox, he is on Levaquin for recent history of urinary tract infection. His labs have been reviewed, showing limits at 3.2, hemoglobin of 11, fibrinogen is 514, electrolytes and renal profile were unremarkable, CRP has improved, and LDH has significantly improved as well. Pro-calcitonin level was 0.09. The patient is seen today in 07/26/2020 in follow-up on the regular medical floor. He is currently sitting up in a chair at the bedside. He is still quite short of breath. He is now requiring 15 L high flow nasal cannula to maintain O2 saturations in the low 90s. He is afebrile. Fibrinogen 528. Sodium 142. Distant 4.0. Creatinine 1.1. LDH 308. C-reactive protein 8.2. He's been initiated on Remdesivir. On 07/29/2020 patient is seen in follow-up in intensive care unit, he was intubated on 07/27/2020 for worsening hypoxic respiratory failure related to COVID 19 pneumonia. Today he remains intubated, sedated on mechanical ventilator, current vent settings are assist-control mode of ventilation with a rate of 22, tidal vitamins 450, FiO2 of 75% and PEEP of 10, this morning his blood gases showed pO2 of 95, pCO2 43, pH is 7.32. IV include 0.9 normal saline at 75 ML per hour, fentanyl drip is at 0.5 mics per kilo per minute, and improving and is at 45 mics per kilo per minute. No vasopressor support. He is in sinus mechanism with frequent PVCs, today is day 3 of Remdesivir, and patient received 1 unit of convalescent plasma. Remains on oral Decadron at 6 mg daily, via the OG tube. He is on empiric antibiotics in the form of cefepime. His sputum culture has shown no growth. Did have a low-grade fever this morning with a temp of 99.9F. Today's labs have been reviewed, showing white blood cell count 9.9, hemoglobin of 9.9, sodium was 42, potassium is 4.3, chloride is 112, CO2 22, BUN is 51, creatinine is 1.61, slightly improved renal function. His last pro-calcitonin was trending up on yesterday's labs, and up to 0.20. Today's chest x-ray has been reviewed showing bilateral airspace disease normal improvements on the right. He is receiving vital high-protein at a rate of 10 ML per hour, RD is following, no acute events overnight, patient is resting comfortably on the vent. The patient is seen today 07/30/2020 in follow-up in the intensive care unit. He was debated on 07/27/2020 for worsening hypoxemia secondary to CoVID 19 pneumonia. Current vent settings assist-control rate of 22, tidal volume 450, FiO2 60% and a PEEP of 12. Arterial blood gases reveal a pO2 of 71, pCO2 40, pH 7.31. Blood glucose 157. He remains on fentanyl at 1 mcg/kg/m, norepinephrine at 0.02 mcg/kg/m, propofol at 70 mcg/kg/m. 0.9 normal saline at 75 ML's per hour. Antibiotics in the form of cefepime. He remains febrile with a temperature of 102.3 axillary. He is tachycardic. Sputum culture pending. He remains on dexamethasone, Lovenox. Objective - Vital Signs Vital signs: Vital Signs Temp 102.3 F H 07/30/20 13:00 Pulse 135 H 07/30/20 13:45 Resp 0 L 07/30/20 13:45 BP 97/53 07/30/20 13:45 Pulse Ox 92 L 07/30/20 13:45 Intake & Output 07/29/20 07/30/20 07/30/20 18:59 06:59 18:59 Intake Total 8879.804 7989.739 785 Output Total 485 675 360 Balance 1423.611 743.739 425 Weight 111.13 kg 111.13 kg Intake: IV 1316 1030 655 Cefepime 2 gm In Sodium 100 100 100 Chloride 0.9% 100 ml @ 25 mls/hr IVPB Q12HR [facility] Rx #:[id number] Remdesivir (Eua) 100 mg 250 In Sodium Chloride 0.9% 250 ml @ 250 mls/hr IVPB DAILY@1300 [facility] Rx#: [id number] Sodium Chloride 0.9% 1, 900 900 525 000 ml @ 100 mls/hr IV . Q10H [facility] Rx#:[id number] pressure bags 66 30 30 Intake, IV Titration 382.611 188.739 Amount Norepinephrine 8 mg In 88.739 Sodium Chloride 0.9% 250 ml @ 0.05 MCG/KG/MIN 10. 752 mls/hr IV .Q24H [facility] Rx#:[id number] fentaNYL (PF) 1,000 mcg 82.611 In Sodium Chloride 0.9% 80 ml @ Per Protocol IV . Q0M [facility] Rx#:[id number] propofoL 1,000 mg In 300.000 100 Empty Bag 1 bag @ Titrate IV .Q0M [facility] Rx#: [id number] Tube Feeding 120 110 70 Other 90 90 60 Output: Urine 485 675 360 Other: Voiding Method Indwelling Catheter Indwelling Catheter Indwelling Catheter ABP, PAP, CO, CI - Last Documented Arterial Blood Pressure 70/39 - Exam GENERAL EXAM: 75-year-old male, sedated, intubated on mechanical ventilator, assist control mode of ventilation comfortable in no apparent distress. HEAD: Normocephalic/atraumatic. EYES: Normal reaction of pupils, equal size. Conjunctiva pink, sclera white. NOSE: Clear with pink turbinates. THROAT: No erythema or exudates. NECK: No masses, no JVD, no thyroid enlargement, no adenopathy. CHEST: No chest wall deformity. Symmetrical expansion. LUNGS: Equal air entry with no crackles, wheeze, rhonchi or dullness. CVS: Regular rate and rhythm, normal S1 and S2, no gallops, no murmurs, no rubs ABDOMEN: Soft, nontender. No hepatosplenomegaly, normal bowel sounds, no guarding or rigidity. EXTREMITIES: No clubbing, no edema, no cyanosis, 2+ pulses and upper and lower extremities. MUSCULOSKELETAL: Muscle strength and tone normal. SPINE: No scoliosis or deformity SKIN: No rashes CENTRAL NERVOUS SYSTEM: Sedated, intubated No focal deficits, tone is normal in all 4 extremities. - Labs CBC & Chem 7: 07/29/20 04:35 07/29/20 04:35 Labs: Abnormal Lab Results - Last 24 Hours (Table) 07/29/20 07/29/20 07/30/20 Range/Units 16:51 23:46 05:45 ABG pH 7.31 L (7.35-7.45) ABG pO2 71 L (83-108) mmHg ABG HCO3 20 L (21-25) mmol/L POC Glucose (mg/dL) 180 H 151 H (75-99) mg/dL 07/30/20 07/30/20 Range/Units 05:54 11:59 ABG pH (7.35-7.45) ABG pO2 (83-108) mmHg ABG HCO3 (21-25) mmol/L POC Glucose (mg/dL) 112 H 157 H (75-99) mg/dL Microbiology - Last 24 Hours (Table) 07/30/20 04:05 Gram Stain - Preliminary Sputum Sputum Culture - Preliminary Assessment and Plan Assessment: #1. Acute COVID 19 infection #2. Acute on chronic hypoxic respiratory failure related to the above requiring intubation mechanical ventilatory support on 07/27/2020. #3. Febrile illness secondary to above #4. Chronic hypoxic respiratory failure, normally wears 3 L of oxygen at bedtime only #5. History of hypertension #6. GERD/reflux #7. Gout #8. Depression #9. BPH #10. Chronic pain syndrome #11. Recent urinary tract infection #12. History of coronary artery disease with previous bypass grafting and stenting #13. History of sarcoidosis Plan: The patient was seen and evaluated by Dr. Lynn Remains intubated on mechanical ventilator Continues to require pressors for blood pressure support Remains sedated on propofol Continued on fentanyl drip Repeat chest x-ray and labs in the a.m. Overall prognosis is guarded We will continue to follow and make further recommendations based on his c linical status Critical Care time 38 minutes I, the cosigning physician, performed a history & physical examination of the patient. Lungs sounds bilateral scattered rhonchi. Maintaining good O2 saturations in the 90s on extreme percent FiO2 via the mechanical ventilator. I discussed the assessment and plan of care with my nurse practitioner, Bella Meyers. I attest to the above note as dictated by her. Time with Patient: Greater than 30
[2020-07-30 17:16] LABS: Anisocytosis Slight; HCT 35.2 % (39.0-53.0); HGB 11.1 gm/dL (13.0-17.5); Hypochromasia Marked; MCH 26.2 pg (25.0-35.0); MCHC 31.6 g/dL (31.0-37.0); MCV 82.8 fL (80.0-100.0); Mean Platelet Volume 8.5; Platelet Count 253 k/uL (150-450); RBC 4.24 m/uL (4.30-5.90); RDW 16.3 % (11.5-15.5); WBC 16.4 k/uL (3.8-10.6)
[2020-07-30 17:27] LABS: Albumin 2.4 g/dL (3.5-5.0); Calcium 7.3 mg/dL (8.4-10.2); Potassium 5.4 mmol/L (3.5-5.1); Total Bilirubin 0.6 mg/dL (0.2-1.3); Total Protein 5.5 g/dL (6.3-8.2)
[2020-07-30 17:37] LABS: D-Dimer 4.01 mg/L FEU (<0.60); INR 1.2 (<1.2); Prothrombin Time 12.3 sec (9.0-12.0)
[2020-07-30] MEDS: NOREPINEPHRINE 8 MG in SODIUM CHLORIDE 0.9% 250 ML IV SCH (17:46)
[2020-07-30] MEDS: fentaNYL (PF) 1,000 MCG in SODIUM CHLORIDE 0.9% 80 ML IV SCH (17:49)
[2020-07-30 17:53] LABS: Glucose,Whole Blood 219 mg/dL (75-99)
[2020-07-30] MEDS ORDERED: FAMOTIDINE 20 MG/2 ML VIAL IV SCH (21:00)
[2020-07-30] MEDS ORDERED: VANCOMYCIN IV PER PHARMACY 1 EACH MISC MISCELLANE PRN (21:46)
--- NOTE | 2020-07-30 21:51 | P.PN ---
Subjective Patient is a 75-year-old male with a known history of sarcoidosis, Alzheimer's dementia, hypertension, GERD, BPH, coronary artery with history of stent placement, peripheral vascular disease and chronic back pain , he , use oxygen at night presents to [facility] initially with complaints of worsening shortness of breath. Patient usually uses oxygen at night but for the past 4 to 5 days he has been using continuously and is also having exertional dyspnea and shortness of breath. Patient was recently tested positive for COVID-19 virus. Patient will take Levaquin for urine tract infection and pneumonia. Patient had CT angiogram of the chest done at [facility] showed no evidence of pulmonary embolism. Patient was transferred to [facility] due to hypoxic respiratory failure and pulse ox was 80% and he presented to ER. Currently on oxygen via nasal cannula. Laboratory test showed D-dimer 0.69, troponin 0 0.020, CRP 145 and LDH 556 patient is currently afebrile while in the hospital. 07/25/2020 Patient is currently lying in bed comfortably. Still requiring oxygen at 5 L by nasal cannula and saturating just above 90%. Hemodynamically stable. Patient is being continued on dexamethasone, Lovenox and is also on antibiotics for recent urinary tract infection. Laboratory data showed WBC 3.2, hemoglobin 11 and renal function is stable. Pulmonary is on board. 07/26/2020 Patient is currently lying in the bed and his oxygen requirements have been increased today. Patient is on 15 L high flow oxygen. Currently afebrile. No complaints of chest pain. Patient is being continued on Remdesivir, dexamethasone and Lovenox. Laboratory data showed Sodium 142, potassium 4.0, BUN 32 and creatinine 1.1 LDH increased to 308 and CRP 8.2. Patient is being transferred to MICU due to worsening respiratory status. 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 Chest x-ray showed diffuse pleural-parenchymal changes with no sizable pneumothorax. Findings are stable. Laboratory data showed WBC 11.2, hemoglobin 11.6, platelets 245 Potassium 4.1, BUN 34 and creatinine 1.75, alk phos 842 and LDH 185 bilirubin level is 0.4 Patient was started on enteral feeding. Patient has been afebrile. Currently saturating at 95% on FiO2 90%. Pulmonary is following. Subjective: This is the first time taking care of the patient 07/28/2020 This is a 75 years old male who was admitted initially for dyspnea related to his bilateral common pneumonia, eventually patient was transferred to the ICU and a cut intubated for acute hypoxic respiratory failure, currently remains in the ICU on mechanical ventilation. Pulmonary/critical care team are following him closely. Labs showing normal WBC today 8.7K, compared to 11 point okay yesterday. Hemoglobin stable at 10.3 and platelets 193K. D-dimer 2 days ago was 1.8, repeat d-dimer today was significantly elevated at 12.3. His Lovenox dose was increased to a therapeutic level at 80 mg twice daily. BMP is reviewed. Her calcitonin is slightly elevated at 0.18 to 0.20. Patient remains on cefepime, oral dexamethasone and Remdesivir. Also is on zinc and vitamin C and Plavix. Also he got covolesant plasma 07/29/2020 Patient is in the ICU on mechanical ventilation. Patient is found closely by pulmonary/critical care team. He had low-grade temperature today. He is tachycardic and tachypneic. WBC remains to be normal. Labs reviewed, Sodium is slightly elevated at 147, rest of the BMP is unremarkable with normal creatinine at 0.6. Glucose is better controlled Remains on therapeutic dose of Lovenox 80 mg twice daily, dexamethasone, tomorrow patient was then is as dose of Remdesivir. Continue with Plavix, vitamin C and zinc 07/30/2020 Patient is seen and examined today in the ICU, he is still an respiratory failure needing mechanical ventilation.pt remains tachycardic and tachypneic with blood pressure on the low side , Is developing worsening renal function with creatinine up to 2.2 today. Mild hyperkalemia. He has worsening leukocytosis of 16.4K.Also liver enzymes went up slightly today pt remains on dexamethasone, today is last dose for Remdesivir which is discontinued now. check inflammatory marker in am Review of systems: N/a Active Medications Generic Name Dose Route Start Last Admin Trade Name Freq PRN Reason Stop Dose Admin Allopurinol 100 mg 07/25/20 09:00 07/30/20 08:12 Allopurinol 100 Mg Tab PO 100 mg DAILY JADEN Administration Ascorbic Acid 1,000 mg 07/27/20 09:00 11/25/20 08:11 Ascorbic Acid 500 Mg Tab PO 1,000 mg DAILY JADEN Administration Atorvastatin Calcium 10 mg 07/24/20 21:00 07/29/20 19:53 Atorvastatin 10 Mg Tab PO 10 mg HS JADEN Administration Chlorhexidine Gluconate 15 ml 07/27/20 09:00 07/30/20 08:11 Chlorhexidine Gluconate 15 Ml Cup MUCOUS MEM 15 ml BID JADEN Administration Clopidogrel Bisulfate 75 mg 07/25/20 09:00 07/30/20 08:13 Clopidogrel 75 Mg Tab PO 75 mg DAILY JADEN Administration Dexamethasone 6 mg 07/24/20 17:00 07/30/20 08:13 Dexamethasone 2 Mg Tab PO 6 mg DAILY JADEN Administration Docusate Sodium 100 mg 07/27/20 21:00 07/30/20 08:14 Docusate 100 Mg Cap PO Not Given BID JADEN Enoxaparin Sodium 80 mg 07/28/20 10:15 07/30/20 08:11 Enoxaparin 80 Mg/0.8 Ml Syringe SQ 80 mg Q12HR JADEN Administration Famotidine 20 mg 07/30/20 21:00 Famotidine 20 Mg/2 Ml Vial IV Q12HR JADEN Propofol 1,000 mg/ IV Solution 100 mls @ 0 mls/hr 07/27/20 01:00 07/30/20 17:53 IV 60 mcg/kg/min .Q0M JADEN 40.007 mls/hr Titration Protocol Titrate Cefepime HCl 2 gm/ Sodium 100 mls @ 25 mls/hr 07/27/20 21:00 07/30/20 08:10 Chloride IVPB 25 mls/hr Q12HR JADEN Administration Sodium Chloride 1,000 mls @ 100 mls/hr 07/27/20 09:30 07/30/20 17:47 Saline 0.9% IV 100 mls/hr .Q10H JADEN Administration Fentanyl Citrate 1,000 mcg/ 100 mls @ 0 mls/hr 07/28/20 11:00 07/30/20 17:49 Sodium Chloride IV 1 mcg/kg/hr .Q0M JADEN 11.113 mls/hr Administration Protocol Per Protocol Norepinephrine Bitartrate 8 mg 258 mls @ 10.752 mls/hr 07/29/20 17:30 07/30/20 19:14 / Sodium Chloride IV 0.08 mcg/kg/min .Q24H JADEN 17.203 mls/hr Titration Protocol 0.05 MCG/KG/MIN Acetaminophen 1,000 mg/ IV 100 mls @ 400 mls/hr 07/30/20 10:26 07/30/20 19:01 Solution IVPB 07/31/20 06:14 400 mls/hr Q6HR PRN Administration Fever and/ or Pain Insulin Aspart 0 unit 07/29/20 12:00 07/30/20 19:49 Insulin Aspart (Novolog) 100 Unit/Ml Vial SQ 7 unit Q6H JADEN Administration Protocol Isosorbide Mononitrate 30 mg 07/25/20 09:00 07/30/20 08:15 Isosorbide Mononitrate Er 30 Mg Tab.Er.24h PO Not Given DAILY JADEN Losartan Potassium 25 mg 07/25/20 09:00 07/30/20 08:15 Losartan 25 Mg Tab PO 25 mg DAILY JADEN Administration Melatonin 5 mg 07/27/20 21:00 07/29/20 19:53 Melatonin 5 Mg Tablet PO 5 mg HS JADEN Administration Miscellaneous Information 1 each 07/28/20 09:45 Potassium Replacement Protocol 1 Each Misc MISCELLANE DAILY PRN Per Protocol Protocol Naloxone HCl 0.2 mg 07/24/20 14:36 Naloxone 0.4 Mg/Ml 1 Ml Vial IV Q2M PRN Opioid Reversal Nitroglycerin 0.4 mg 07/24/20 16:25 Nitroglycerin Sl Tabs 0.4 Mg Tab SUBLINGUAL Q5M PRN Chest Pain Sertraline HCl 50 mg 07/25/20 09:00 07/30/20 08:15 Sertraline 50 Mg Tab PO 50 mg DAILY JADEN Administration Tamsulosin HCl 0.8 mg 07/24/20 21:00 07/29/20 19:53 Tamsulosin 0.4 Mg Cap.Er.24h PO Not Given HS JADEN Zinc Sulfate 220 mg 07/27/20 09:00 07/30/20 08:15 Zinc Sulfate 220 Mg Cap PO 220 mg DAILY JADEN Administration Objective - Vital Signs Vital signs: Vital Signs Temp 102.3 F H 07/30/20 13:00 Pulse 135 H 07/30/20 13:45 Resp 0 L 07/30/20 13:45 BP 97/53 07/30/20 13:45 Pulse Ox 92 L 07/30/20 13:45 Intake & Output 07/29/20 07/30/20 07/30/20 18:59 06:59 18:59 Intake Total 4164.549 8072.739 785 Output Total 485 675 360 Balance 1423.611 743.739 425 Weight 111.13 kg 111.13 kg Intake: IV 1316 1030 655 Cefepime 2 gm In Sodium 100 100 100 Chloride 0.9% 100 ml @ 25 mls/hr IVPB Q12HR JADEN Rx #:[id number] Remdesivir (Eua) 100 mg 250 In Sodium Chloride 0.9% 250 ml @ 250 mls/hr IVPB DAILY@1300 JADEN Rx#: [id number] Sodium Chloride 0.9% 1, 900 900 525 000 ml @ 100 mls/hr IV . Q10H JADEN Rx#:[id number] pressure bags 66 30 30 Intake, IV Titration 382.611 188.739 Amount Norepinephrine 8 mg In 88.739 Sodium Chloride 0.9% 250 ml @ 0.05 MCG/KG/MIN 10. 752 mls/hr IV .Q24H JADEN Rx#:[id number] fentaNYL (PF) 1,000 mcg 82.611 In Sodium Chloride 0.9% 80 ml @ Per Protocol IV . Q0M JADEN Rx#:[id number] propofoL 1,000 mg In 300.000 100 Empty Bag 1 bag @ Titrate IV .Q0M JADEN Rx#: [id number] Tube Feeding 120 110 70 Other 90 90 60 Output: Urine 485 675 360 Other: Voiding Method Indwelling Catheter Indwelling Catheter Indwelling Catheter ABP, PAP, CO, CI - Last Documented Arterial Blood Pressure 70/39 - Exam -GENERAL: The patient is intubated and sedated HEENT: Pupils are round and equally reacting to light. EOMI. No scleral icterus. No conjunctival pallor. Normocephalic, atraumatic. No pharyngeal erythema. No thyromegaly. CARDIOVASCULAR: S1 and S2 present. No murmurs, rubs, or gallops. -PULMONARY: Chest is clear to auscultation, no bilateral crepitation ABDOMEN: Soft, nontender, nondistended, normoactive bowel sounds. No palpable organomegaly. MUSCULOSKELETAL: No joint swelling or deformity. EXTREMITIES: No cyanosis, clubbing, or pedal edema. NEUROLOGICAL: Gross neurological examination did not reveal any focal deficits. SKIN: No rashes. no petechiae. - Labs CBC & Chem 7: 07/30/20 16:42 07/30/20 16:42 Labs: Abnormal Lab Results - Last 24 Hours (Table) 07/29/20 07/29/20 07/30/20 Range/Units 16:51 23:46 05:45 ABG pH 7.31 L (7.35-7.45) ABG pO2 71 L (83-108) mmHg ABG HCO3 20 L (21-25) mmol/L POC Glucose (mg/dL) 180 H 151 H (75-99) mg/dL 07/30/20 07/30/20 Range/Units 05:54 11:59 ABG pH (7.35-7.45) ABG pO2 (83-108) mmHg ABG HCO3 (21-25) mmol/L POC Glucose (mg/dL) 112 H 157 H (75-99) mg/dL Microbiology - Last 24 Hours (Table) 07/30/20 04:05 Gram Stain - Preliminary Sputum Sputum Culture - Preliminary Assessment and Plan Assessment: Acute hypoxic respiratory failure secondary to COVID-19 bilateral pneumonia. Currently on mechanical ventilator. COVID-19 viral infection bilateral pneumonia Decreased inflammatory markers and d-dimer Chronic hypoxic respiratory failure on oxygen at 3 L via nasal cannula History of sarcoidosis currently not on any steroids. Coronary artery disease history of stent placement Hypertension GERD BPH Gout Plan: This is a 75 years old male who presents with bilateral carotid pneumonia. Continue with mechanical ventilation as per pulmonary/critical care team. Continue with cefepime, dexamethasone, remdesivir and Lovenox therapeutic dose Labs and medication were reviewed.. Continue same treatment. Continue with symptomatic treatment. Resume home medication. Monitor lytes and vitals. DVT and GI prophylaxis. Further recommendationsas per clinical course of the patient DVT prophylaxis: Subcutaneous lovenx GI Prophylaxis: Ppi Prognosis is guarded
[2020-07-30] MEDS: ATORVASTATIN 10 MG TAB PO SCH (21:57)
[2020-07-30] MEDS: TAMSULOSIN 0.4 MG CAP.ER.24H PO SCH (21:58)
[2020-07-30] MEDS: MELATONIN 5 MG TABLET PO SCH (22:02)
[2020-07-30 22:28] VITALS: TEMP 104
[2020-07-30] MEDS ORDERED: VANCOMYCIN 2,000 MG in SODIUM CHLORIDE 0.9% 500 ML 500 ML IVPB ONE (23:00)
[2020-07-30] MEDS ORDERED: SODIUM BICARB 8.4% 50 ML SYR (1 MEQ/ML) ONE (23:05)
[2020-07-30] MEDS ORDERED: CALCIUM CHLORIDE 100 MG/ML 10 ML SYRINGE ONE (23:05)
[2020-07-30] MEDS ORDERED: EPINEPHrine 10 ML SYRINGE (0.1 MG/ML) ONE (23:05)
--- NOTE | 2020-07-30 23:27 | PN ---
PROGRESS NOTE DATE OF SERVICE: 07/30/2020 REASON FOR FOLLOW UP: 1. Covid-19 pneumonia. 2. Patient with new fever and symptoms. INTERVAL HISTORY: The patient did spike a fever of 103 degrees Fahrenheit this morning. Has been afebrile during the day. The patient also has borderline blood pressure requiring pressor support. FiO2 is currently 60%. No significant purulent secretions in the ET has been reported. No vomiting or any diarrhea. PHYSICAL EXAMINATION: Blood pressure is 103/54 with a pulse of 107. T-max 103. He is 95% on 50% FiO2. General description is an elderly male, intubated on the vent. Respiratory system: Unlabored breathing, decreased intensity of breath sounds . Extremities: No edema of the feet. LABS: Hemoglobin 11.1, white count 16.4, BUN of 57, creatinine is 2.22. Liver enzymes are mildly elevated. DIAGNOSTIC IMPRESSION AND PLAN: 1. Patient with acute COVID-19 pneumonia in this patient with respiratory failure. The patient has completed a 5-day course of Remdesivir and is currently on dexamethasone and Lovenox. 2. Patient now with new fever with concern for possible nosocomial infection/pneumonia. gram-negative coverage. Will need gram-positive coverage unfortunately could not able to use the Zyvox as the patient is on Zoloft. The patient does have borderline kidney function, high risk of nephrotoxicity. However, in view of overall clinical condition, we will add vancomycin with careful monitoring of his kidney function. Blood culture, sputum culture has been repeated. Continue supportive care. MMODL / IJN: [id number] /
[2020-07-31 01:03] VITALS: BP 58/29; PULSE 0
[2020-07-31 01:05] VITALS: RESP 18
--- NOTE | 2020-07-31 01:11 | P.EN ---
KELSEA UNDERWOOD team note Kelsea underwood activated at 2305. Arrived on the scene at 2307. Discussed the case with the RN at the bedside. She noted the patient had lost his pulse and a subsequent started CPR. The patient was in PEA. Reviewed the patient's chart in detail. The patient was given Epi IVP x 4, bicarbo x 3, and calcium chloride x 3. He was also shocked at 2314 for V. tach with 200 J. There was ROSC @ 2316 with a pulse of sinus at 126. The patient subsequently again lost his pulse at 2320. The patient continued to be in PEA. He was subsequently pronounced @ 2325. The family, primary care team, and intensivists were all notified by the [employer]. For further details, please refer to the code sheet.
[2020-07-31 03:02] LABS: Hemoglobin A1C 7.6 % (4.0-6.0)
--- NOTE | 2020-08-01 07:06 | P.DS ---
Providers Date of admission: 07/24/20 14:36 Attending physician: Huong Milian Consults: 07/24/20 14:37 Consult Physician Urgent Consulting Provider: Liu Coker Consult Reason/Comments: covid infection, hypoxia Do you want consulting provider notified?: Yes 07/24/20 14:41 Consult Physician Urgent Consulting Provider: Christiana Read Consult Reason/Comments: sarcoid, covid positive Do you want consulting provider notified?: Yes Primary care physician: Simba Bowden Hospital Course: Diagnoses: Acute hypoxic respiratory failure secondary to COVID-19 bilateral pneumonia. Currently on mechanical ventilator. COVID-19 viral infection bilateral pneumonia Decreased inflammatory markers and d-dimer Chronic hypoxic respiratory failure on oxygen at 3 L via nasal cannula History of sarcoidosis currently not on any steroids. Coronary artery disease history of stent placement Hypertension GERD BPH Gout Hospital course: Patient is a 75-year-old male with a known history of sarcoidosis, Alzheimer's dementia, hypertension, GERD, BPH, coronary artery with history of stent placement, peripheral vascular disease and chronic back pain , was admitted initially for dyspnea related to his bilateral common pneumonia, eventually patient was transferred to the ICU and a got intubated for acute hypoxic respiratory failure, she remained in the ICU on mechanical ventilation. Pulmonary/critical care team are following him closely. His Covid test came back positive and detected. Patient was treated with cefepime, oral dexamethasone and Remdesivir. Also is on zinc and vitamin C and Plavix. Also he got covolesant plasma . However patient condition continued to deteriorate Patient doctor osteopathic on 07/31, please refer to the event note for more details Patient Condition at Discharge: Serious Plan - Discharge Summary Discharge Rx Participant: No New Discharge Prescriptions: No Action Albuterol Sulfate [Ventolin HFA] 2 puff INHALATION RT-Q6H PRN PRN Reason: Shortness Of Breath Allopurinol [Zyloprim] 100 mg PO DAILY Atorvastatin [Lipitor] 10 mg PO HS cilostazoL [Pletal] 100 mg PO BID Clopidogrel Bisulfate [Plavix] 75 mg PO DAILY Docusate Sodium [Dok] 100 mg PO BID PRN PRN Reason: Constipation Isosorbide Mononitrate ER [Imdur] 30 mg PO DAILY Levofloxacin [Levaquin] 750 mg PO DAILY Losartan Potassium [Cozaar] 25 mg PO DAILY Magnesium Oxide [Mag-Ox] 400 mg PO DAILY Methadone [Dolophine] 10 mg PO Q12H Nitroglycerin Sl Tabs [Nitrostat] 0.4 mg SUBLINGUAL Q5M PRN PRN Reason: Chest Pain Omeprazole [PriLOSEC] 20 mg PO DAILY Sertraline [Zoloft] 50 mg PO DAILY Tamsulosin [Flomax] 0.8 mg PO HS Discharge Medication List Albuterol Sulfate [Ventolin HFA] 2 puff INHALATION RT-Q6H PRN 07/24/20 [History] Allopurinol [Zyloprim] 100 mg PO DAILY 07/24/20 [History] Atorvastatin [Lipitor] 10 mg PO HS 07/24/20 [History] Clopidogrel Bisulfate [Plavix] 75 mg PO DAILY 07/24/20 [History] Docusate Sodium [Dok] 100 mg PO BID PRN 07/24/20 [History] Isosorbide Mononitrate ER [Imdur] 30 mg PO DAILY 07/24/20 [History] Levofloxacin [Levaquin] 750 mg PO DAILY 07/24/20 [History] Losartan Potassium [Cozaar] 25 mg PO DAILY 07/24/20 [History] Magnesium Oxide [Mag-Ox] 400 mg PO DAILY 07/24/20 [History] Methadone [Dolophine] 10 mg PO Q12H 07/24/20 [History] Nitroglycerin Sl Tabs [Nitrostat] 0.4 mg SUBLINGUAL Q5M PRN 07/24/20 [History] Omeprazole [PriLOSEC] 20 mg PO DAILY 07/24/20 [History] Sertraline [Zoloft] 50 mg PO DAILY 07/24/20 [History] Tamsulosin [Flomax] 0.8 mg PO HS 07/24/20 [History] cilostazoL [Pletal] 100 mg PO BID 07/24/20 [History] Follow up Appointment(s)/Referral(s): Simba Bowden MD [Primary Care Provider] - 1-2 days Discharge Disposition: - Preliminary Cause of Preliminary Cause of : covid pnaumonia
--- NOTE | 2020-08-08 11:29 | CDI ---
Documentation Clarification Form Date: 08/08/2020 11:11:58 AM From: Vandana FinneganSmithCHRISTA harris, CCDS Admit Date: 07/24/2020 02:36:00 PM Patient Name: Romelia Lora Visit Number: [id number] Discharge Date: 07/30/2020 11:25:00 PM ATTENTION: The Clinical Documentation Specialists (CDI) and [facility] Coding Staff appreciate your assistance in clarifying documentation. Please respond to the clarification below the line at the bottom and electronically sign. The CDI & [facility] Coding staff will review the response and follow-up if needed. Please note: Queries are made part of the Legal Health Record. If you have any questions, please contact the author of this message via ITS. Dr. Huong Milian: Per the 07/30 Infectious Disease Progress Note: "Patient now with new fever with concern for possible nosocomial infection/pneumonia. gram-negative coverage. Will need gram-positive coverage unfortunately not able to use the Zyvox as the patient is on Zoloft. The patient does have borderline kidney function, high risk of nephrotoxicity. However, in view of overall clinical condition, we will add Vancomycin with careful monitoring of his kidney function. Blood culture, sputum culture has been repeated." History/Risk Factors: CAD with previous stent & bypass, Sarcoidosis, Home O2 3Lnc, Hypertension, UTIs, GERD, BPH, Gout, Chronic Back Pain. Clinical Indicators: Patent was transferred from [facility] due to SOB & +COVID test, PO 80%. Admit with COVID 19 & Hypoxemia. 07/24 VS: T 98.4, P 58*, R 14, BP 121/71, PO 95 3Lnc - 93 3Lnc 07/26 VS: T 97.5*, P 122^, R 22-41 (SOB, labored), BP 160/70, PO 90 15% nrb 07/27 VS: T 100.1^, P 128, R 34, BP 75/41, PO 89 (vent) LAB 07/25: WBC 3.2*, Lymph 0.5*, Lactate Dehydrogenase 556 LAB 07/27: WBC 11.2^, Neut 10.2^, Lactate Dehydrogenase 842^ 07/27 ABG: pH 7.28*, pCO2 54^, pO2 72*, HCO3 26^, Total CO2 27^ 07/27 Sputum Culture: Final: Negative 07/29 Blood Culture: Final: Negative 07/30 Sputum Culture: Final: Negative 07/30 Blood Culture: Final Negative Treatment 07/24: IV Morphine, Lovenox sq, po Hexadrol. 07/26: IV Levaquin, IV Remdesivir. 07/27: Intubated, Vit C, Peridex, Orazinc, IV Cefepime, IV fluid 1,000 mls @ 999 mls/hr, IV fluid 1,000 mls @ 100 mls/hr. 07/29: IV Diprivan, IV Epi, IV Tylenol, IV Vancomyin In your professional opinion, please clarify if these findings signify one of the following conditions, whether the condition is POA, and cause, if known: Sepsis o Severe Sepsis o Septic Shock Other, please specify Unable to determine o Present on Admission: Yes or No Please identify the suspected organism: Link or clarify if there is associated (due to/with): o Organ failure o Shock (Last Revision: December 2017) Severe Sepsis POA MTDD
--- NOTE | 2020-08-08 11:34 | CDI ---
Documentation Clarification Form Date: 08/08/2020 11:30:20 AM From: Vandana FinneganSmithCHRISTA harris, CCDS Admit Date: 07/24/2020 02:36:00 PM Patient Name: Romelia Lora Visit Number: [id number] Discharge Date: 07/30/2020 11:25:00 PM ATTENTION: The Clinical Documentation Specialists (CDI) and [facility] Coding Staff appreciate your assistance in clarifying documentation. Please respond to the clarification below the line at the bottom and electronically sign. The CDI & [facility] Coding staff will review the response and follow-up if needed. Please note: Queries are made part of the Legal Health Record. If you have any questions, please contact the author of this message via ITS. Dr. Huong Milian: Per the 07/30 Infectious Disease Progress Note: "Patient now with new fever with concern for possible nosocomial infection/pneumonia. gram-negative coverage. Will need gram-positive coverage unfortunately not able to use the Zyvox as the patient is on Zoloft. The patient does have borderline kidney function, high risk of nephrotoxicity. However, in view of overall clinical condition, we will add Vancomycin with careful monitoring of his kidney function. Blood culture, sputum culture has been repeated." History/Risk Factors: CAD with previous stent & bypass, Sarcoidosis, Home O2 3Lnc, Hypertension, UTIs, GERD, BPH, Gout, Chronic Back Pain. Clinical Indicators: Patent was transferred from [facility] due to SOB & +COVID test, PO 80%. Admit with COVID 19 & Hypoxemia. 07/24 VS: T 98.4, P 58*, R 14, BP 121/71, PO 95 3Lnc - 93 3Lnc 07/26 VS: T 97.5*, P 122^, R 22-41 (SOB, labored), BP 160/70, PO 90 15% nrb 07/27 VS: T 100.1^, P 128, R 34, BP 75/41, PO 89 (vent) LAB 07/25: WBC 3.2*, Lymph 0.5*, Lactate Dehydrogenase 556 LAB 07/27: WBC 11.2^, Neut 10.2^, Lactate Dehydrogenase 842^ 07/27 ABG: pH 7.28*, pCO2 54^, pO2 72*, HCO3 26^, Total CO2 27^ 07/27 Sputum Culture: Final: Negative 07/29 Blood Culture: Final: Negative 07/30 Sputum Culture: Final: Negative 07/30 Blood Culture: Final Negative Treatment 07/24: IV Morphine, Lovenox sq, po Hexadrol. 07/26: IV Levaquin, IV Remdesivir. 07/27: Intubated, Vit C, Peridex, Orazinc, IV Cefepime, IV fluid 1,000 mls @ 999 mls/hr, IV fluid 1,000 mls @ 100 mls/hr. 07/29: IV Diprivan, IV Epi, IV Tylenol, IV Vancomyin. In order to capture the severity of condition, please clarify if the condition signifies and you are treating for: Bacterial Pneumonia, specify causal organism (if known) o Gram Negative Pneumonia o Other bacteria (please specify) Healthcare Acquired Pneumonia/Pneumonia, unspecified Other, please specify Unable to determine o Please specify if Present on Admission: Yes or No (Last Revision: December 2017) Bacterial Pneumonia. Possible Gram Negative Pneumonia MTDD
== END 2020-07-30 23:25 | disposition expired | DRG 871 ==
LOC: EC 12:44 → 4SSUR 14:36 → 2SICU 07-26 18:55
PROVIDERS: ADMIT Internal Medicine; ATTEND Internal Medicine
DX: A41.89 Other specified sepsis (principal); U07.1 COVID-19; J96.21 Acute and chronic respiratory failure with hypoxia; J12.89 Other viral pneumonia; J15.6 Pneumonia due to other Gram-negative bacteria; N39.0 Urinary tract infection, site not specified; N17.9 Acute kidney failure, unspecified; R65.20 Severe sepsis without septic shock; N40.0 Benign prostatic hyperplasia without lower urinary tract symptoms; I46.9 Cardiac arrest, cause unspecified; K21.9 Gastro-esophageal reflux disease without esophagitis; M10.9 Gout, unspecified; D72.810 Lymphocytopenia; F32.9 Major depressive disorder, single episode, unspecified; F11.90 Opioid use, unspecified, uncomplicated; G30.9 Alzheimer's disease, unspecified; F02.80 Dementia in other diseases classified elsewhere, unspecified severity, without behavioral disturbance, psychotic disturbance, mood disturbance, and anxiety; E87.5 Hyperkalemia; G89.4 Chronic pain syndrome; I10 Essential (primary) hypertension; M54.9 Dorsalgia, unspecified; I25.10 Atherosclerotic heart disease of native coronary artery without angina pectoris; I73.9 Peripheral vascular disease, unspecified; D86.9 Sarcoidosis, unspecified; I49.3 Ventricular premature depolarization; Z79.02 Long term (current) use of antithrombotics/antiplatelets; Z79.899 Other long term (current) drug therapy; Z87.440 Personal history of urinary (tract) infections; Z79.01 Long term (current) use of anticoagulants; Z88.8 Allergy status to other drugs, medicaments and biological substances; Z95.5 Presence of coronary angioplasty implant and graft; Z95.1 Presence of aortocoronary bypass graft; Z99.81 Dependence on supplemental oxygen
CPT/HCPCS: 36600; 71045; 80048; 80053; 82553; 82728; 82805; 83036; 83615; 83735; 84145; 84484; 85025; 85027; 85379; 85384; 85610; 86140; 86850; 86900; 86901; 87040; 87070; 87205; 93005; 94002; 94003; 94660; 96372; 96374; 99285